=== PATIENT | male | born 1990 | race Caucasian/White ===

== ENCOUNTER → 2020-04-16 11:43 | Outpatient (CLI) | payer BC, SELFPAY ==
[2020-04-16 12:20] LABS: Basophils # 0.1 K/mm3 (0-0.2); Basophils % 1.1 % (0.1-2.0); Eosinophils # 0.1 K/mm3 (0.0-0.4); Hematocrit 47.2 % (42.0-52.0); Hemoglobin 16.4 g/dL (14.1-18.0); Lymphocytes # 1.4 K/mm3 (0.7-4.5); Lymphocytes % 23.6 % (10-50); Mean Corpuscular HGB Conc 34.7 g/dL (31.8-35.4); Mean Corpuscular Hemoglobin 29.9 pg (27.0-31.2); Mean Corpuscular Volume 86.1 fl (80-94); Mean Platelet Volume 7.4 fl (7.4-10.4); Monocytes # 0.5 K/mm3 (0.1-1.0); Neutrophils # 3.8 K/mm3 (1.8-7.8); Neutrophils % 64.2 % (37.0-80.0); Platelet Count 229 K/mm3 (142-424); Red Blood Count 5.48 M/mm3 (4.60-6.20); Red Cell Distribution Width 14.4 % (11.5-17.5)
[2020-04-16 13:23] LABS: Chloride 103 mmol/L (98-107); Potassium 4.7 mmoL/L (3.5-5.1); Sodium 141 mmol/L (136-145)
[2020-04-16 13:25] LABS: Alanine Aminotransferase 43 U/L (12-78); Alkaline Phosphatase 78 U/L (38-126); Aspartate Amino Transferase 40 U/L (17-59); Bilirubin,Total 0.8 mg/dl (0.2-1.3); Blood Urea Nitrogen 12 mg/dl (9-20); Estimated Glomerular Filt Rate 100 ml/min (>60); GFR (African American) 121 ML/MIN (>60)
[2020-04-16 13:26] LABS: Albumin Level 4.9 g/dl (3.5-5.0); Albumin/Globulin Ratio 1.6 (1.1-1.8); Anion Gap 10.7 mEq/L (5-15); Calcium 10.1 mg/dl (8.4-10.2); Carbon Dioxide 32 mmol/L (22.0-30.0); Chol/HDL Ratio 7.5 (1-3.5); Cholesterol 231 mg/dl (140-200); Glucose 104 mg/dl (74-100); HDL Cholesterol 31 mg/dl (40-60); Total Protein,Serum 7.9 g/dl (6.3-8.2); Triglycerides 373 mg/dl (30-150); VLDL Cholesterol 75 mg/dL (0-40)
[2020-04-16 13:37] LABS: Direct LDL Cholesterol 114.05 mg/dL (100-129)
[2020-04-16 13:41] LABS: 25-OH Vitamin D, Total 16.9 ng/mL (30-100)
[2020-04-16 13:43] LABS: T4 (Thyroxine) 8.3 ug/dl (5.53-11.0)
[2020-04-16 13:56] LABS: Thyroid Stimulating Hormone 2.44 uIU/mL (0.465-4.68)
[2020-04-16 14:45] LABS: Hemoglobin A1C 5.1 % (4.0-6.0)
== END ==
PROVIDERS: Visit Provider Nurse Practitioner Family
DX: I10 Essential (primary) hypertension (principal); R53.1 Weakness; E66.9 Obesity, unspecified; Z68.35 Body mass index [BMI] 35.0-35.9, adult; R73.09 Other abnormal glucose; E55.9 Vitamin D deficiency, unspecified; Z87.891 Personal history of nicotine dependence
CPT/HCPCS: 36415; 80053; 80061; 82306; 83036; 84436; 84443; 85025

== ENCOUNTER → 2020-09-17 20:08 | Outpatient (CLI) | payer BC, SELFPAY ==
[2020-09-17 20:30] LABS: Basophils # 0.1 K/mm3 (0-0.2); Basophils % 1.1 % (0.1-2.0); Eosinophils # 0.9 K/mm3 (0.0-0.4); Eosinophils % 11.6 % (0.1-12.0); Hematocrit 40.1 % (42.0-52.0); Hemoglobin 14.6 g/dL (14.1-18.0); Lymphocytes # 1.6 K/mm3 (0.7-4.5); Lymphocytes % 21.6 % (10-50); Mean Corpuscular HGB Conc 36.4 g/dL (31.8-35.4); Mean Corpuscular Hemoglobin 30.3 pg (27.0-31.2); Mean Corpuscular Volume 83.3 fl (80-94); Mean Platelet Volume 8.2 fl (7.4-10.4); Monocytes # 0.6 K/mm3 (0.1-1.0); Monocytes % 8.3 % (1.7-9.3); Neutrophils # 4.3 K/mm3 (1.8-7.8); Neutrophils % 57.5 % (37.0-80.0); Platelet Count 235 K/mm3 (142-424); Red Blood Count 4.81 M/mm3 (4.60-6.20); Red Cell Distribution Width 14.2 % (11.5-17.5); White Blood Count 7.5 K/mm3 (4.8-10.8)
[2020-09-17 20:37] LABS: Alanine Aminotransferase 44 U/L (12-78); Albumin Level 4.3 g/dl (3.5-5.0); Albumin/Globulin Ratio 1.7 (1.1-1.8); Alkaline Phosphatase 83 U/L (38-126); Anion Gap 12.7 mEq/L (5-15); Aspartate Amino Transferase 48 U/L (17-59); Bilirubin,Total 0.6 mg/dl (0.2-1.3); Blood Urea Nitrogen 10 mg/dl (9-20); Calcium 8.9 mg/dl (8.4-10.2); Carbon Dioxide 28 mmol/L (22.0-30.0); Chloride 104 mmol/L (98-107); Chol/HDL Ratio 7.6 (1-3.5); Cholesterol 206 mg/dl (140-200); Estimated Glomerular Filt Rate 100 ml/min (>60); GFR (African American) 121 ML/MIN (>60); Globulin 2.6 g/dL (1.3-3.2); Glucose 91 mg/dl (74-100); HDL Cholesterol 27 mg/dl (40-60); Potassium 3.7 mmoL/L (3.5-5.1); Sodium 141 mmol/L (136-145); Total Protein,Serum 6.9 g/dl (6.3-8.2); Triglycerides 382 mg/dl (30-150); VLDL Cholesterol 76 mg/dL (0-40)
[2020-09-17 20:48] LABS: Direct LDL Cholesterol 110.52 mg/dL (100-129)
[2020-09-17 20:53] LABS: 25-OH Vitamin D, Total 25.8 ng/mL (30-100)
[2020-09-17 20:55] LABS: Free T4 (Free Thyroxine) 1.02 ng/dl (0.78-2.19)
[2020-09-17 21:08] LABS: Thyroid Stimulating Hormone 2.08 uIU/mL (0.465-4.68)
== END ==
PROVIDERS: Visit Provider Nurse Practitioner Family
DX: I10 Essential (primary) hypertension (principal); E03.9 Hypothyroidism, unspecified; K59.00 Constipation, unspecified; R53.83 Other fatigue; E55.9 Vitamin D deficiency, unspecified; Z79.899 Other long term (current) drug therapy
CPT/HCPCS: 80053; 80061; 82306; 84439; 84443; 85025

== ENCOUNTER → 2021-03-11 09:58 | Outpatient (CLI) | payer BC, SELFPAY ==
--- NOTE | 2021-03-11 | CA_ITS ---
APPROVED REPORT Exam: Exercise Treadmill Technologist: Carlie Love Ht: 5 ft 5 in Wt: 228 lbs BSA: 2.09 m2 HR: 94 bpm BP: 138/80 mmHg Indications: Chest pain, Shortness of Breath Medical History Medications: Lisinopril,,,,, Vitamin D2,,,,, Stress Test Details Test: Michael HR Resting HR: 90 bpm Max Heart Rate (APMHR): 191 bpm Max HR Achieved: 175 bpm Target HR (85% APMHR): 162 bpm % of APMHR: 92 Recovery HR: 112 bpm BP Resting BP: 138.0/80.0 mmHg Max BP: 208.0/70.0 mmHg Recovery BP: 149.0/86.0 mmHg ECG Resting ECG: Normal sinus rhythm, ST-T abnormalities in leads III and aVF. Clinical Exercise duration: 10:37 min Highest Stage Achieved: Exercise capacity: 12.8 METs Stress ECG Conclusion Patient exercised 10:37 on Michael Protocol. Test stopped due to shortness of air, leg fatigue. Symptoms: No chest pain. Arrhythmias/Ectopy: None ST-T Changes: Mild exaggeration of baseline abnormalities in leads III and aVF, otherwise normal ST response to exercise. Conclusion: Normal GXT. GXT only (no imaging). Test Summary REST . . . . . . . Sitting REST . . . . . . . Standing REST 03:59 0.0 0.0 90 . 138/ 80 . . Stage 1 01:00 10.0 1.7 123 . . . . Stage 1 02:00 10.0 1.7 126 . . . . Stage 1 03:00 10.0 1.7 125 . . . . Stage 2 01:00 12.0 2.5 136 . 158/ 86 . . Stage 2 02:00 12.0 2.5 136 . 158/ 86 . . Stage 2 03:00 12.0 2.5 142 . 184/ 80 . . Stage 3 01:00 14.0 3.4 152 . . . . Stage 3 02:00 14.0 3.4 156 . 200/ 82 . . Stage 3 03:00 14.0 3.4 159 . 200/ 82 . . Stage 4 01:00 16.0 4.2 170 . . . . Stage 4 01:37 16.0 4.2 175 . . . Stop exercise at 10:37 RECOVERY 01:00 0.0 0.0 148 . 208/ 70 . . RECOVERY 02:00 0.0 0.0 124 . 208/ 70 . . RECOVERY 03:00 0.0 0.0 123 . 157/ 85 . . RECOVERY 04:00 0.0 0.0 115 . 157/ 85 . . RECOVERY 05:00 0.0 0.0 111 . 159/ 94 . . RECOVERY 06:00 0.0 0.0 107 . 149/ 86 . . RECOVERY 06:20 0.0 0.0 106 . 149/ 86 . . Electronically signed by : Esau Monroe MD 03/11/2021 21:12:52
--- NOTE | 2021-03-11 10:01 | CA_ITS ---
APPROVED REPORT EXAM: Comprehensive 2D, Doppler, and color-flow Echocardiogram Head Grease Maker: Gely Krishnan, RCS, RVS Ht: 5 ft 5 in Wt: 228lbs BSA: 2.09 BP: 140/88 mmHg Indications: CP, SOA, HTN, HLD, exsmoker, Obesity 2D Dimensions IVSd 0.99 cm LA Volume 25.10 mL PWd 0.90 cm LA Volume Index 12.00 mL/m2 (M/F) 16-34 LVDd 4.67 cm Aortic Root 2.78 cm Left Atrium 3.47 cm LVOT 2.19 cm (M/F) 1.5-2.5 M-Mode Dimensions RVDd 2.25 cm (0.9-2.6) LA Diam 2.99 cm (1.9-4.0) LVDd 5.00 cm (3.5-5.7) Ao Diam 3.13 cm (2.0-3.7) LVDs 3.15 cm (3.5-5.7) IVSd 1.04 cm (0.6-1.1) PWd 1.07 cm (0.6-1.1) EF (Teich) 66.70% EPSs 0.50 cm FS 37.00% EDV (Teich) 118.20 mL TAPSE 2.38 (<1.7) ESV (Teich) 39.40 mL LV Diastology E Decel Time 173.00 (160-240 msec) E/A Ratio 1.72 MED E' 10.80 (< 7 cm/sec) MED A' 9.50 cm/s E'/MED E' Ratio 7.53 (>14) LAT E' 14.50 (<10 cm/sec) LAT A' 8.40 cm/s E/LAT E' Ratio 5.61 (>14) Aortic Valve LVOT Max 100.00 (70-110 cm/s) LVOT VTI 16.42 cm AoV Peak Khari. 102.00 (50-130 cm/s) AO Peak GR. 4.10 mmHg AO Mean GR. 2.20 (<5 mmHg) AO VTI 19.14 (18-25 cm) JM (VTI) 3.23 (2.5-4.5 cm2) Mitral Valve MV A Velocity 47.00 (40-130 cm/s) E/A Ratio 1.72 MV Decel. Time 173.00 (160-240 ms) Pulmonary Valve PV Peak Velocity 75.00 (50-150 cm/s) Tricuspid Valve TR P. Velocity 148.00 cm/s RAP Estimate 10.00 mmHg RVSP 18.80 mmHg Left Ventricle Left atrium is normal size, left ventricle is normal size, there is no concentric left ventricular hypertrophy, visually estimated ejection fraction 55% with no regional wall motion abnormality, diastolic parameters are within normal range. Right Ventricle Right atrium and right ventricle are normal size and contractility. Aortic Valve Aortic valve is grossly normal, there is no aortic stenosis or aortic insufficiency. Mitral Valve Mitral valve is grossly normal, there is trace mitral regurgitation. Tricuspid Valve Tricuspid grossly normal, there is trace tricuspid regurgitation, tricuspid regurgitation jet velocity is inadequate for calculation of the right ventricular systolic pressure. Pulmonic Valve Pulmonic valve is poorly visualized. Great Vessels Aortic root is normal size. Inferior vena cava normal size with normal inspiratory collapse. Pericardium No significant pericardial effusion noted. Conclusion 1. Normal left ventricular size, preserved left ventricular systolic function, visually estimated ejection fraction 55% with no regional wall motion abnormality, diastolic parameters are within normal range. 2. Trace mitral and tricuspid regurgitation. 3. No significant pericardial effusion noted. 4. Inferior vena cava normal size with normal inspiratory collapse. Electronically signed by : Esau Monroe MD 03/11/2021 20:52:15
== END ==
PROVIDERS: PCP Nurse Practitioner Family; Visit Provider Urology
DX: R07.9 Chest pain, unspecified (principal); I10 Essential (primary) hypertension; E78.5 Hyperlipidemia, unspecified; R94.31 Abnormal electrocardiogram [ECG] [EKG]; Z87.891 Personal history of nicotine dependence
CPT/HCPCS: 93017; 93306

== ENCOUNTER 2021-04-23 13:56 | Emergency (ER) | payer BC, SELFPAY ==
--- NOTE | 2021-04-23 13:54 | ECG_ITS ---
APPROVED REPORT Exam: Resting ECG HR:103 bpm ECG Measurements Heart Rate 103 AXES SD 125 P 53 QRSd 106 QRS 42 QT 336 T 30 QTc 396 Conclusion SINUS TACHYCARDIA ABNORMAL RHYTHM ECG UNCONFIRMED REPORT Electronically signed by : Wilbert Villalobos MD 04/27/2021 17:32:26
[2021-04-23 13:56] VITALS: BP 147/69; PULSE 96; RESP 20; TEMP 36.7; O2SAT 100; BMI 38.2
--- NOTE | 2021-04-23 13:58 | XR_ITS ---
FINAL REPORT CLINICAL HISTORY: chest pain FINDINGS: SINGLE VIEW CHEST. The heart is normal in size. The mediastinum is unremarkable. The lungs are clear. There is no pneumothorax. IMPRESSION: No acute process. Reviewed, Interpreted and Dictated by Mike Felton MD Transcribed by Jaimee Gonzales Authenticated by Mike Felton MD on 04/23/2021 02:22:19 PM [facility]
--- NOTE | 2021-04-23 14:02 | HMH.EDGENADL ---
ED Disposition Clinical Impression: Chest pain Qualifiers: Chest pain type: unspecified Qualified Code(s): R07.9 - Chest pain, unspecified Disposition: Home, Self-Care Condition on Discharge: Good Instructions: DI for Chest Pain Additional Instructions: You have been evaluated for chest pain. Laboratory results, EKG, chest x-ray today are reassuring. They do not show evidence of heart attack, pneumonia. Please follow-up with your primary care doctor in 1 to 2 days for symptom recheck. Follow-up with your loan assistant, Dr. Wu as needed. Take anti-inflammatories like Tylenol or ibuprofen. Return to the emergency department at once for any new or worsening symptoms, chest pain, shortness of breath, other concerns Referrals: Vicki Stratton APRN [Primary Care Provider] - Time of Disposition: 16:46 - Critical Care Critical Care Time: No Attestation: On 04/23/21, the high probability of a clinically significant, sudden or life threatening deterioration of the following system(s) required my full and direct attention, intervention and personal management. The time I documented below is in addition to time spent performing reported procedures but includes the following listed in this critical care notation. Medical Decision Making - Medical Records Medical records reviewed: Yes: I reviewed the patient's medical records. - Vineet Inquiry Pt receiving controlled substance: No Vital Signs: 04/23/21 13:56 Temperature 98.0 F Temperature Source Oral Pulse Rate [Left Radial] 96 H Respiratory Rate 20 Blood Pressure [Right Arm] 147/69 H Blood Pressure Mean [Right Arm] 95 Blood Pressure Source [Right Arm] Automatic Cuff Blood Pressure Position [Right Arm] Sitting 02 Sat by Pulse Oximetry 100 Oxygen Delivery Method Room Air - Lab Data Lab Results 04/23/21 13:59: WBC 5.8, RBC 5.22, Hgb 16.0, Hct 46.3, MCV 88.7, MCH 30.6, MCHC 34.5, RDW 14.4, Plt Count 243, MPV 7.4, Neut % (Auto) 56.1, Lymph % (Auto) 28.9, [place] % (Auto) 9.1, Eos % (Auto) 3.5, Baso % (Auto) 2.4 H, Neut # (Auto) 3.3, Lymph # (Auto) 1.7, [place] # (Auto) 0.5, Eos # (Auto) 0.2, Baso # (Auto) 0.1 04/23/21 13:59: D-Dimer 0.37 04/23/21 13:59: Sodium 142, Potassium 3.3 L, Chloride 104, Carbon Dioxide 30, Anion Gap 11.3, BUN 10, Creatinine 0.80, Estimated Creat Clear 199, Estimated GFR 114, Est GFR ( Amer) 137, Glucose 121 H, Calcium 9.2, Total Bilirubin 0.5, AST 69 H, ALT 94 H, Alkaline Phosphatase 73, Troponin I < 0.01, Total Protein 7.7, Albumin 4.8, Globulin 2.9, Albumin/Globulin Ratio 1.7 04/23/21 16:00: Troponin I < 0.01 Result diagrams: 04/23/21 13:59 04/23/21 13:59 Orders (Tests/Meds): ED MEDICATIONS Discontinued Medications Generic Name Dose Route Start Last Admin Trade Name Freq PRN Reason Stop Dose Admin Aspirin 324 mg 04/23/21 13:58 04/23/21 14:02 Aspirin 81mg Chewable Tablet PO 04/23/21 13:59 324 mg ONCE ONE Administration ORDERS Category Date Time Status Troponin I Q3H Lab 04/23/21 20:00 Ordered ECG Request by /Nse Stat Y 04/23/21 13:58 Ordered - LISANDRA Score for Non-Stemi Age of Patient: 30-39 years old Heart Rate: 90-109 bpm Systolic Blood Pressure: 140-159 mmHg Serum Creatinine: 0.80-1.19 mg/dl CHF Killip Class: I-No CHF Other Risk Factors: None Non-Stemi Risk Score: 54 Medical Decision Narrative: In summary this is a 31-year-old male with history of hypertension presenting to the emergency department with chest pain. Patient clinically stable on arrival. Tachycardic. Other vital signs within normal limits. Concern for ACS, chest wall pain, viral syndrome, pulmonary embolism. Will obtain CBC, CMP, chest x-ray, EKG, troponin profile, D-dimer. Patient given 325 chewable aspirin Initial laboratory results are reassuring. Slight elevation in AST and ALT, nonspecific EKG shows sinus rhythm, tachycardia without evidence of ischemia or arrhythmia. X-ray shows no focal opacity or multifoca
[2021-04-23 14:16] LABS: Basophils # 0.1 K/mm3 (0-0.2); Basophils % 2.4 % (0.1-2.0); Eosinophils # 0.2 K/mm3 (0.0-0.4); Eosinophils % 3.5 % (0.1-12.0); Hematocrit 46.3 % (42.0-52.0); Lymphocytes # 1.7 K/mm3 (0.7-4.5); Lymphocytes % 28.9 % (10-50); Mean Corpuscular HGB Conc 34.5 g/dL (31.8-35.4); Mean Corpuscular Hemoglobin 30.6 pg (27.0-31.2); Mean Corpuscular Volume 88.7 fl (80-94); Mean Platelet Volume 7.4 fl (7.4-10.4); Monocytes # 0.5 K/mm3 (0.1-1.0); Monocytes % 9.1 % (1.7-9.3); Neutrophils # 3.3 K/mm3 (1.8-7.8); Neutrophils % 56.1 % (37.0-80.0); Platelet Count 243 K/mm3 (142-424); Red Blood Count 5.22 M/mm3 (4.60-6.20); Red Cell Distribution Width 14.4 % (11.5-17.5); White Blood Count 5.8 K/mm3 (4.8-10.8)
[2021-04-23 14:22] LABS: Alanine Aminotransferase 94 U/L (12-78); Albumin Level 4.8 g/dl (3.5-5.0); Albumin/Globulin Ratio 1.7 (1.1-1.8); Alkaline Phosphatase 73 U/L (38-126); Anion Gap 11.3 mEq/L (5-15); Aspartate Amino Transferase 69 U/L (17-59); Bilirubin,Total 0.5 mg/dl (0.2-1.3); Blood Urea Nitrogen 10 mg/dl (9-20); Calcium 9.2 mg/dl (8.4-10.2); Carbon Dioxide 30 mmol/L (22.0-30.0); Chloride 104 mmol/L (98-107); Creatinine Clearance Estimated 199 mL/min (50-200); Estimated Glomerular Filt Rate 114 ml/min (>60); GFR (African American) 137 ML/MIN (>60); Globulin 2.9 g/dL (1.3-3.2); Glucose 121 mg/dl (74-100); Potassium 3.3 mmoL/L (3.5-5.1); Sodium 142 mmol/L (136-145); Total Protein,Serum 7.7 g/dl (6.3-8.2)
[2021-04-23 14:27] LABS: D-Dimer 0.37 ug/mL (0.0-0.5)
[2021-04-23 14:47] LABS: Troponin I < 0.01 ng/ml (0.00-0.034)
[2021-04-23 16:42] LABS: Troponin I < 0.01 ng/ml (0.00-0.034)
[2021-04-23 16:56] VITALS: BP 129/69; PULSE 94; RESP 16; TEMP 36.7; O2SAT 96
== END 2021-04-23 16:59 | disposition home or self-care (01) ==
PROVIDERS: Emergency Provider Emergency Medicine; PCP Nurse Practitioner Family
DX: R07.9 Chest pain, unspecified (principal)
CPT/HCPCS: 71045; 80053; 84484; 85025; 85378; 93005; 99283

== ENCOUNTER → 2021-06-17 17:00 | Outpatient (CLI) | payer BC, SELFPAY ==
[2021-06-17 18:34] LABS: Basophils # 0.1 K/mm3 (0-0.2); Basophils % 1.7 % (0.1-2.0); Eosinophils # 0.2 K/mm3 (0.0-0.4); Eosinophils % 4.3 % (0.1-12.0); Hematocrit 45.2 % (42.0-52.0); Lymphocytes # 1.2 K/mm3 (0.7-4.5); Mean Corpuscular HGB Conc 33.2 g/dL (31.8-35.4); Mean Corpuscular Hemoglobin 29.9 pg (27.0-31.2); Mean Corpuscular Volume 90.2 fl (80-94); Mean Platelet Volume 8.8 fl (7.4-10.4); Monocytes # 0.5 K/mm3 (0.1-1.0); Monocytes % 10.8 % (1.7-9.3); Neutrophils # 2.7 K/mm3 (1.8-7.8); Neutrophils % 58.1 % (37.0-80.0); Platelet Count 225 K/mm3 (142-424); Red Blood Count 5.01 M/mm3 (4.60-6.20); Red Cell Distribution Width 14.3 % (11.5-17.5); White Blood Count 4.6 K/mm3 (4.8-10.8)
[2021-06-17 19:10] LABS: Alanine Aminotransferase 78 U/L (12-78); Albumin Level 4.4 g/dl (3.5-5.0); Albumin/Globulin Ratio 1.7 (1.1-1.8); Alkaline Phosphatase 80 U/L (38-126); Anion Gap 13.8 mEq/L (5-15); Aspartate Amino Transferase 58 U/L (17-59); Bilirubin,Total 0.6 mg/dl (0.2-1.3); Blood Urea Nitrogen 10 mg/dl (9-20); Calcium 8.9 mg/dl (8.4-10.2); Carbon Dioxide 27 mmol/L (22.0-30.0); Chloride 106 mmol/L (98-107); Cholesterol 208 mg/dl (140-200); Estimated Glomerular Filt Rate 114 ml/min (>60); GFR (African American) 137 ML/MIN (>60); Globulin 2.6 g/dL (1.3-3.2); Glucose 97 mg/dl (74-100); HDL Cholesterol 26 mg/dl (40-60); Potassium 3.8 mmoL/L (3.5-5.1); Sodium 143 mmol/L (136-145)
[2021-06-17 19:11] LABS: Hemoglobin A1C 5.3 % (4.0-6.0)
[2021-06-17 19:17] LABS: Triglycerides 401 mg/dl (30-150)
[2021-06-17 19:21] LABS: Direct LDL Cholesterol 91.96 mg/dL (100-129)
[2021-06-17 19:25] LABS: T4 (Thyroxine) 7.1 ug/dl (5.53-11.0)
[2021-06-17 19:39] LABS: Thyroid Stimulating Hormone 3.31 uIU/mL (0.465-4.68)
== END ==
PROVIDERS: Visit Provider Nurse Practitioner Family
DX: R93.2 Abnormal findings on diagnostic imaging of liver and biliary tract (principal); F41.9 Anxiety disorder, unspecified; Z79.899 Other long term (current) drug therapy
CPT/HCPCS: 80053; 80061; 82043; 83036; 84436; 84443; 85025

== ENCOUNTER 2021-11-28 09:58 | Emergency (ER) | payer BC, SELFPAY ==
[2021-11-28 10:23] VITALS: BP 131/89; PULSE 101; RESP 19; TEMP 37.7; O2SAT 98; BMI 34.0
--- NOTE | 2021-11-28 10:23 | EXP.UTC ---
Discharge Plan Disposition Patient Disposition: Home, Self-Care Condition: Good Prescriptions Prescriptions: No Action lisinopril 20 mg tablet 20 mg PO DAILY Qty: 90 3RF ergocalciferol (vitamin D2) 1,250 mcg (50,000 unit) capsule 50,000 unit PO QWEEK Qty: 10 0RF Referrals Follow up/Referrals: Provider,Referral, MD [Primary Care Provider] - See instructions Clinical Impressions Clinical Impression: Contact with and (suspected) exposure to covid-19 Stand Alone Forms Stand Alone Forms: Work/School Release Instructions Patient Instructions: DI for Fever (Symptom) -- Adult, DI for COVID-19 (Suspected or Confirmed ), Preventing the Spread of Coronavirus Discharge Instructions Discharge ED Provider: Julia Hale [facility] [place] General Stated complaint: fever, congestion, LARA Time Seen by Provider: 11/28/21 10:23 History of Present Illness Provider Complaint: Pt relates that a co-worker beside him has had Covid and he did a home test last night and tested positive for Covid. Pt states that he has had fever, cough, body aches since yesterday. Related Data Previous Rx's Medication Instructions Recorded ergocalciferol (vitamin D2) 1,250 50,000 unit PO QWEEK #10 caps 09/23/20 mcg (50,000 unit) capsule lisinopril 20 mg tablet 20 mg PO DAILY #90 tabs 02/10/21 Allergies Allergy/AdvReac Type Severity Reaction Status Date / Time No Known Allergies Allergy Verified 06/17/21 13:02 [facility] Medical History (Updated 11/28/21 @ 10:35 by Julia Hale APRN) Hypertension Social History Smoking Status: Never smoker alcohol intake: never current occupational status: other Travel in the last 8 weeks: None ROS Obtained: Yes All systems reviewed & no additional complaints except as documented Constitutional Constitutional: Reports as per HPI, Reports body ache, Reports fever(s) and Reports malaise ENT Ears, Nose, Mouth, and Throat: Reports nasal congestion and Reports nasal discharge Cardiovascular Cardiovascular: Reports system reviewed and no additional complaints, except as documented and Denies dyspnea on exertion Respiratory Respiratory: Reports system reviewed and no additional complaints, except as documented, Denies shortness of breath, Reports non-productive cough and Denies dyspnea on exertion Physical Exam General General appearance: alert and in no apparent distress ENT ENT exam: Present mucous membranes moist Expanded ENT Exam External ear exam: Present normal external inspection Nasal speculum exam: Bilateral: other (clear sinus drainage) Mouth exam: Present normal external inspection Throat exam: Present normal inspection Respiratory Respiratory exam: Present normal lung sounds bilaterally; Absent wheezes or accessory muscle use Cardiovascular Cardiovascular exam: Present regular rate and normal rhythm Neurological Exam Neurological exam: Present alert and oriented X3 Lymphatic Lymphatic Findings: no adenopathy Medical Decision Making Vineet Inquiry Pt receiving controlled substance: No Vineet was queried for this patient: No Orders (Tests/Meds): ORDERS Category Date Time Status Covid-19 Nasal PCR ([facility]) Routine Lab 11/28/21 10:06 Ordered
[2021-11-28 10:38] VITALS: BP 131/89; PULSE 101; RESP 19; TEMP 37.7; O2SAT 98
== END 2021-11-28 10:39 | disposition home or self-care (01) ==
PROVIDERS: Emergency Provider Nurse Practitioner Family
DX: U07.1 COVID-19 (principal); R50.9 Fever, unspecified; R51.9 Headache, unspecified; R09.81 Nasal congestion
CPT/HCPCS: 99212; C9803; G0463; U0003; U0005

== ENCOUNTER → 2022-07-07 16:34 | Outpatient (CLI) | payer BC, SELFPAY ==
--- NOTE | 2022-07-07 16:44 | XR_ITS ---
FINAL REPORT CLINICAL HISTORY: Shortness of breath, heart palpitations COMPARISON: 04/23/2021 FINDINGS: Two views of the chest were obtained. The heart size and pulmonary vascularity are within normal limits. The mediastinum is normal. No acute pulmonary abnormality is identified. There is no pneumothorax. The bony thorax is intact. IMPRESSION: No active cardiopulmonary disease. Reviewed, Interpreted and Dictated by Memo Callaway III, MD Transcribed by Pamela Fernandez Authenticated and [facility] [place] [place]
== END ==
PROVIDERS: PCP Physician Assistant; Visit Provider Physician Assistant
DX: R06.09 Other forms of dyspnea (principal); R00.2 Palpitations
CPT/HCPCS: 71046

== ENCOUNTER 2022-07-09 12:27 | Emergency (ER) | payer BC, SELFPAY ==
[2022-07-09] VITALS (7 sets, daily range): BP systolic 107–155; BP diastolic 63–96; PULSE 66–95; RESP 16–17; TEMP 36.7–36.8; O2SAT 94–99; BMI 35.9
--- NOTE | 2022-07-09 12:26 | ECG_ITS ---
APPROVED REPORT Exam: Resting ECG HR:101 bpm ECG Measurements Heart Rate 101 AXES ID 142 P 70 QRSd 100 QRS 62 QT 337 T 45 QTc 395 Conclusion SINUS TACHYCARDIA ABNORMAL RHYTHM ECG UNCONFIRMED REPORT Electronically signed by : Wilbert Villalobos MD 07/10/2022 08:34:32
--- NOTE | 2022-07-09 12:32 | PC.NURSE ---
DR WHITE AT BEDSIDE
--- NOTE | 2022-07-09 12:35 | HMH.EDGENADL ---
Discharge Plan Disposition Patient Disposition: Home, Self-Care Condition: Good Chief Complaint: Chest Pain Prescriptions Prescriptions: No Action lisinopril 20 mg tablet 20 mg PO DAILY Qty: 90 3RF ergocalciferol (vitamin D2) 1,250 mcg (50,000 unit) capsule 50,000 unit PO QWEEK Qty: 10 0RF Activity Restrictions/Add. Instructions Additional Instructions/Restrictions: At this time was felt you are safe to be discharged from the emergency department. If new or worsening symptoms please not hesitate to return for continued evaluation. Please follow-up with cardiology as discussed. Clinical Impressions Clinical Impression: Chest pain Discharge ED Provider: Tommy Barnes General Adult HPI General Chief complaint: Chest Pain Stated complaint: chest pain Time Seen by Provider: 07/09/22 12:30 Mode of Arrival: Ambulatory Source of Information: Patient Limitations: No Limitations Description of Symptoms (Recalled from ER Triage Doc. by RN): c/o center left chest pain with left arm and neck pain, nausea, LARA that started about one week ago. States he was suppose to start on anxiety meds and was picking them up today. States the pain comes when he is stressed. History of Present Illness HPI narrative: Patient is a 32-year-old male with past medical history of anxiety who presents emergency department for evaluation of chest pain. It has been intermittent, over the last week, substernal, intermittently radiating into his left shoulder, associated with emotional stress. No exertional components. 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 Denies cough, other acute complaints at this time. Related Data Previous Rx's Medication Instructions Recorded ergocalciferol (vitamin D2) 1,250 50,000 unit PO QWEEK #10 caps 09/23/20 mcg (50,000 unit) capsule lisinopril 20 mg tablet 20 mg PO DAILY #90 tabs 02/10/21 Allergies Allergy/AdvReac Type Severity Reaction Status Date / Time No Known Allergies Allergy Verified 06/17/21 13:02 [facility] Disclaimer: The information contained in this section may have been updated after the patient was seen, as this information can be updated by other users. Medical History (Updated 07/09/22 @ 16:27 by Tommy Barnes MD) Hypertension Social History Smoking Status: Never smoker alcohol intake: never current occupational status: other Travel in the last 8 weeks: None ROS Obtained: Yes Systems reviewed as appropriate & no additional complaints except as documented Physical Exam General General appearance: alert and in no apparent distress Head Head exam: atraumatic and normocephalic Eye Eye exam: Present PERRL and EOMI ENT ENT exam: Present mucous membranes moist Neck Neck exam: Present normal inspection Chest Chest inspection: Present normal inspection and symmetric chest wall rise Respiratory Respiratory exam: Present normal lung sounds bilaterally; Absent respiratory distress Cardiovascular Cardiovascular exam: Present regular rate, normal rhythm and other (2+ right radial pulse) Abdominal Exam Abdominal exam: Present soft; Absent tenderness Extremities Exam Extremities exam: Present normal inspection Neurological Exam Neurological exam: Present alert Psychiatric Psychiatric exam: Present normal affect Skin Skin exam: Present warm and dry Medical Decision Making Vineet Inquiry Pt receiving controlled substance: No Vital Signs: 07/09/22 12:29 07/09/22 12:30 07/09/22 13:00 Temperature 98.1 F Temperature Source Oral Pulse Rate 95 H 83 Pulse Rate [Left Radial] 89 Respiratory Rate 16 Blood Pressure 135/96 H 129/78 Blood Pressure [Right Arm] 155/96 H Blood Pressure Mean 114 95 Blood Pressure Mean [Right Arm] 115 Blood Pressure Source [Right Arm] Automatic Cuff Blood Pressure Position [Right Arm] Sitting 02 Sat by Pulse Oximetry 99 99 95 Oxygen Delivery Method Room Air Room Air Room Air 07/09/22 13:3
--- NOTE | 2022-07-09 12:40 | PC.NURSE ---
ROUNDED ON PT AT THIS TIME, UPDATED ON POC. TOLERATED PO INTAKE, NO NEEDS AT THIS TIME
[2022-07-09 12:53] LABS: Basophils # 0.1 K/mm3 (0-0.2); Chloride 101 mmol/L (98-107); Eosinophils # 0.1 K/mm3 (0.0-0.4); Eosinophils % 2.5 % (0.1-12.0); Hematocrit 47.7 % (42.0-52.0); Hemoglobin 16.2 g/dL (14.1-18.0); Lymphocytes # 1.3 K/mm3 (0.7-4.5); Lymphocytes % 24.5 % (10-50); Mean Corpuscular HGB Conc 34.1 g/dL (31.8-35.4); Mean Corpuscular Hemoglobin 29.2 pg (27.0-31.2); Mean Corpuscular Volume 85.6 fl (80-94); Mean Platelet Volume 7.5 fl (7.4-10.4); Monocytes # 0.5 K/mm3 (0.1-1.0); Monocytes % 8.6 % (1.7-9.3); Neutrophils # 3.4 K/mm3 (1.8-7.8); Neutrophils % 63.6 % (37.0-80.0); Platelet Count 214 K/mm3 (142-424); Potassium 3.7 mmoL/L (3.5-5.1); Red Blood Count 5.57 M/mm3 (4.60-6.20); Red Cell Distribution Width 14.1 % (11.5-17.5); Sodium 142 mmol/L (136-145); White Blood Count 5.3 K/mm3 (4.8-10.8)
[2022-07-09 12:56] LABS: Anion Gap 13.7 mEq/L (5-15); Blood Urea Nitrogen 9 mg/dl (9-20); Carbon Dioxide 31 mmol/L (22.0-30.0); Creatinine Clearance Estimated 165 mL/min (50-200); Estimated Glomerular Filt Rate 98 ml/min (>60); GFR (African American) 119 ML/MIN (>60); Glucose 119 mg/dl (74-100)
[2022-07-09 13:09] LABS: Troponin I < 0.01 ng/ml (0.00-0.034)
--- NOTE | 2022-07-09 13:12 | PC.NURSE ---
PT TO XR
--- NOTE | 2022-07-09 13:54 | ECG_ITS ---
APPROVED REPORT Exam: Resting ECG HR:77 bpm ECG Measurements Heart Rate 77 AXES ID 148 P 63 QRSd 96 QRS 56 QT 357 T 42 QTc 389 Conclusion SINUS RHYTHM NORMAL ECG UNCONFIRMED REPORT Electronically signed by : Wilbert Villalobos MD 07/10/2022 08:34:29
--- NOTE | 2022-07-09 14:00 | PC.NURSE ---
PT UPDATED AT THIS TIME, NO NEEDS VOICED. CALL LIGHT WITHIN REACH
--- NOTE | 2022-07-09 14:58 | PC.NURSE ---
nikky storey and terrell shi rounded on pt
--- NOTE | 2022-07-09 15:42 | PC.NURSE ---
PT UPDATED AT THIS TIME, REPEAT TROP DRAWN BY LAB. PT WITHOUT NEEDS AT THIS TIME
[2022-07-09 16:24] LABS: Troponin I < 0.01 ng/ml (0.00-0.034)
--- NOTE | 2022-07-09 16:35 | PC.NURSE ---
DR WHITE AT BEDSIDE TO UPDATE PT ON DISCHARGE
== END 2022-07-09 16:40 | disposition home or self-care (01) ==
PROVIDERS: Emergency Provider Emergency Medicine
DX: R07.9 Chest pain, unspecified (principal); M25.512 Pain in left shoulder
CPT/HCPCS: 80048; 84484; 85025; 93005; 99285

== ENCOUNTER 2022-08-12 08:50 | Emergency (ER) | payer BC, SELFPAY ==
[2022-08-12] VITALS (7 sets, daily range): BP systolic 128–154; BP diastolic 77–99; PULSE 71–81; RESP 18; TEMP 36.7–36.8; O2SAT 96–99; BMI 34.9
--- NOTE | 2022-08-12 09:22 | CT_ITS ---
FINAL REPORT CLINICAL HISTORY: dizziness FINDINGS: Axial images of the head were obtained without contrast. Coronal reformatted images were also obtained.This study was performed with techniques to keep radiation doses as low as reasonably achievable (ALARA). Individualized dose reduction techniques using automated exposure control or adjustment of mA and/or kV according to the patient''s size were employed. There is no evidence of intracranial hemorrhage or mass. The ventricular size is within normal limits. There is no evidence of shift of the midline structures. No abnormal extra axial fluid collection is identified. No skull abnormality is seen on the bone window images. There is mild mucosal thickening in both maxillary sinuses. IMPRESSION: No acute intracranial abnormality. Reviewed, Interpreted and Dictated by Memo Callaway III, MD Transcribed by Stacey Staples Authenticated and [facility]
--- NOTE | 2022-08-12 09:22 | CT_ITS ---
FINAL REPORT TECHNIQUE: Thin section axial CT images were obtained through the neck after intravenous contrast administration. Coronal and sagittal reformats were also obtained. This study was performed with techniques to keep radiation doses as low as reasonably achievable (ALARA). Individualized dose reduction techniques using automated exposure control or adjustment of mA and/or kV according to the patient''s size were employed. CLINICAL HISTORY: neck swelling, PATIENT STATES FOR A FEW MOS, NO INJURY FINDINGS: The nasopharynx, oropharynx, hypopharynx and larynx are unremarkable. There is no mass or adenopathy. The thyroid gland is unremarkable. There is mild mucosal thickening in both maxillary sinuses. There is no acute osseous abnormality. IMPRESSION: No acute process. Reviewed, Interpreted and Dictated by Memo Callaway III, MD Transcribed by Stacey Staples Authenticated and [facility]
--- NOTE | 2022-08-12 09:33 | ECG_ITS ---
APPROVED REPORT Exam: Resting ECG HR:75 bpm ECG Measurements Heart Rate 75 AXES VT 155 P 63 QRSd 95 QRS 58 QT 351 T 20 QTc 380 Conclusion SINUS RHYTHM WITH SINUS ARRHYTHMIA NORMAL ECG UNCONFIRMED REPORT Electronically signed by : Wilbert Villalobos MD 08/12/2022 21:39:10
--- NOTE | 2022-08-12 09:41 | HMH.EDGENADL ---
Discharge Plan Disposition Patient Disposition: Home, Self-Care Condition: Good Chief Complaint: Eye Problems Prescriptions Prescriptions: No Action amlodipine 2.5 mg tablet 2.5 mg PO HS Label Comments: TAKE 1 TABLET BY MOUTH AT NIGHT levothyroxine 25 mcg tablet 25 mcg PO DAILY coenzyme Q10 [Co Q-10] 100 mg capsule 100 mg PO DAILY desvenlafaxine succinate 50 mg tablet extended release 24 hr 50 mg PO DAILY lisinopril 20 mg tablet 20 mg PO DAILY Qty: 90 3RF ergocalciferol (vitamin D2) 1,250 mcg (50,000 unit) capsule 50,000 unit PO QWEEK Qty: 10 0RF Referrals Follow up/Referrals: Martha Santos PA [Primary Care Provider] - See instructions Clinical Impressions Clinical Impression: Vertigo, Visual disturbance Instructions Patient Instructions: Benign Paroxysmal Positional Vertigo Discharge ED Provider: Michael Meraz General Adult HPI General Chief complaint: Eye Problems Stated complaint: Blurred vision Time Seen by Provider: 08/12/22 12:02 Mode of Arrival: Ambulatory Source of Information: Patient Limitations: No Limitations Description of Symptoms (Recalled from ER Triage Doc. by RN): Patient presents via POV with complaints of intermittent blurred vision and lightheadedness since Tuesday. Patient states recent medication changes. Restarted Desvenlafaxine and prescribed Valacyclovir. History of Present Illness HPI narrative: Patient presents to the emergency department with visual changes, lightheadedness and swelling of his neck. The patient states that he has been seen by his primary care physician recently for his suspected lymphadenopathy in his neck. He states for the last 6 days he has had difficulty with lightheadedness and blurry vision which waxes and wanes. He states that is not significantly dependent upon head position. He denies any numbness, tingling or weakness in any of his arms or legs. He describes being seen by his primary care physician who is recently been giving him antibiotics, steroids and recently started him on antivirals. She was concerned that dehydration may be playing a part in his lightheadedness and encouraged him to use electrolyte substances. The patient states that this is not significantly improved his symptoms. He did describe a headache initially but denies any significant headache today. Related Data Home Medications Medication Instructions Recorded Confirmed amlodipine 2.5 mg tablet 2.5 mg PO HS 07/21/22 07/21/22 coenzyme Q10 100 mg capsule (Co 100 mg PO DAILY 07/21/22 07/21/22 Q-10) desvenlafaxine succinate 50 mg 50 mg PO DAILY 07/21/22 07/21/22 tablet,extended release 24 hr levothyroxine 25 mcg tablet 25 mcg PO DAILY 07/21/22 07/21/22 Previous Rx's Medication Instructions Recorded ergocalciferol (vitamin D2) 1,250 50,000 unit PO QWEEK #10 caps 09/23/20 mcg (50,000 unit) capsule lisinopril 20 mg tablet 20 mg PO DAILY #90 tabs 02/10/21 Allergies Allergy/AdvReac Type Severity Reaction Status Date / Time No Known Allergies Allergy Verified 07/21/22 08:25 [facility] Disclaimer: The information contained in this section may have been updated after the patient was seen, as this information can be updated by other users. Medical History Chest pain Dizziness Hypertension Palpitations Social History Smoking Status: Never smoker alcohol intake: never current occupational status: other Travel in the last 8 weeks: None ROS Obtained: Yes All systems reviewed & no additional complaints except as documented Eyes Eyes: Reports change in vision ENT Ears, Nose, Mouth, and Throat: Reports dizziness and Reports neck mass Neurologic Neurologic: Reports dizziness and Reports other visual disturbances Physical Exam General General appearance: alert and in no apparent distress Head
[2022-08-12 10:03] LABS: Chloride 97 mmol/L (98-107); Potassium 3.9 mmoL/L (3.5-5.1); Sodium 139 mmol/L (136-145)
[2022-08-12 10:06] LABS: Alanine Aminotransferase 57 U/L (12-78); Albumin Level 4.1 g/dl (3.5-5.0); Albumin/Globulin Ratio 1.6 (1.1-1.8); Alkaline Phosphatase 54 U/L (38-126); Anion Gap 12.9 mEq/L (5-15); Aspartate Amino Transferase 45 U/L (17-59); Bilirubin,Total 0.8 mg/dl (0.2-1.3); Blood Urea Nitrogen 8 mg/dl (9-20); Carbon Dioxide 33 mmol/L (22.0-30.0); Creatine Kinase 263 U/L (55-170); Creatinine Clearance Estimated 160 mL/min (50-200); Estimated Glomerular Filt Rate 98 ml/min (>60); GFR (African American) 119 ML/MIN (>60); Globulin 2.5 g/dL (1.3-3.2); Glucose 122 mg/dl (74-100); Total Protein,Serum 6.6 g/dl (6.3-8.2)
[2022-08-12 10:07] LABS: Basophils % 0.9 % (0.1-2.0); Eosinophils # 0.1 K/mm3 (0.0-0.4); Hematocrit 44.7 % (42.0-52.0); Hemoglobin 15.2 g/dL (14.1-18.0); Lymphocytes # 1.2 K/mm3 (0.7-4.5); Lymphocytes % 25.3 % (10-50); Mean Corpuscular HGB Conc 33.9 g/dL (31.8-35.4); Mean Corpuscular Hemoglobin 29.2 pg (27.0-31.2); Mean Corpuscular Volume 86.2 fl (80-94); Mean Platelet Volume 7.5 fl (7.4-10.4); Monocytes # 0.3 K/mm3 (0.1-1.0); Monocytes % 6.2 % (1.7-9.3); Neutrophils # 3.1 K/mm3 (1.8-7.8); Neutrophils % 65.6 % (37.0-80.0); Platelet Count 192 K/mm3 (142-424); Red Blood Count 5.19 M/mm3 (4.60-6.20); Red Cell Distribution Width 14.3 % (11.5-17.5); White Blood Count 4.7 K/mm3 (4.8-10.8)
[2022-08-12 10:19] LABS: Lactate Dehydrogenase 193 U/L (313-618); Uric Acid 6.4 mg/dl (3.5-8.5)
== END 2022-08-12 12:15 | disposition home or self-care (01) ==
PROVIDERS: Emergency Provider Emergency Medicine; PCP Physician Assistant
DX: R42 Dizziness and giddiness (principal); H53.8 Other visual disturbances; R22.1 Localized swelling, mass and lump, neck
CPT/HCPCS: 70450; 70491; 80053; 82550; 83615; 84550; 85025; 93005; 96360; 99285; Q9967

== ENCOUNTER → 2022-08-13 07:09 | Outpatient (CLI) | payer BC, SELFPAY ==
--- NOTE | 2022-08-13 | CA_ITS ---
APPROVED REPORT Exam: Exercise Treadmill Technologist: Juliana Rios, Ht: 5 ft 5 in Wt: 213 lbs BSA: 2.03 m2 HR: 98 bpm BP: 164/98 mmHg Rhythm: NSR Medical History Medications: Amlodipine,,,,, Lisinopril,,,,, Levothyroxine,,,,, Coenzyme,,,,, Vit D2,,,,, Desvenlafaxine SUCCINATE,,,,, Cardiac Risk Factors: HTN, FHX of CAD Stress Test Details Test: Michael HR Resting HR: 89 bpm Max Heart Rate (APMHR): 189 bpm Max HR Achieved: 170 bpm Target HR (85% APMHR): 161 bpm % of APMHR: 90 Recovery HR: 142 bpm BP Resting BP: 151/87 mmHg Max BP: 198/94 mmHg Recovery BP: 187.0/94.0 mmHg ECG Resting ECG: NSR, T-wave changes in the inferior leads Stress ECG: No change Clinical Exercise duration: 10:59 min Highest Stage Achieved: Exercise capacity: 12.8 METs Stress ECG Conclusion During Michael protocol, the patient experinced lightheaded and leg fatigue. Occasional PVC were present. At peak stress, no ischemic changes were noted. Test Summary REST . . . . . . . Standing REST . . . . . . . Sitting REST 03:13 0.0 0.0 89 . 151/ 87 . . Stage 1 01:00 10.0 1.7 98 . . . . Stage 1 02:00 10.0 1.7 109 . 160/ 90 . . Stage 1 03:00 10.0 1.7 109 . 160/ 90 . . Stage 2 01:00 12.0 2.5 112 . . . . Stage 2 02:00 12.0 2.5 126 . . . . Stage 2 03:00 12.0 2.5 126 . 170/ 90 . . Stage 3 01:00 14.0 3.4 128 . . . . Stage 3 02:00 14.0 3.4 139 . . . . Stage 3 03:00 14.0 3.4 146 . 176/ 85 . . Stage 4 . . . . . . . Myoview Injected Stage 4 01:00 16.0 4.2 166 . . . . Stage 4 01:59 16.0 4.2 169 . . . Stop exercise at 10:59 RECOVERY 01:00 0.0 0.0 133 . . . . RECOVERY 02:00 0.0 0.0 116 . 187/ 94 . . RECOVERY 03:00 0.0 0.0 102 . 170/ 89 . . RECOVERY 04:00 0.0 0.0 98 . 170/ 89 . . RECOVERY 04:17 0.0 0.0 102 . 146/ 86 . . Electronically signed by : Lydia Ortiz, 08/13/2022 20:59:27
--- NOTE | 2022-08-13 07:09 | NM_ITS ---
APPROVED REPORT Exam: Nuclear Stress Test Indication: chest pain..palpitations Patient Location: Outpatient Stress Tech: Juliana Rios [place] Tech:Teetee CameronANNMARIE RT(R)(N) Ht: 5 ft 5 in Wt: 210 lbs HR: 89 bpm BP: 151/87 mmHg BSA: 2.02 m2 TID: 1.08 BMI: 34.9 History: chest pain..palpitations Procedure: Patient exercised on Michael protocol 10:59 minutes and sec, resting heart rate 89 bpm, resting blood pressure 151/84 mmHg, with exercise maximum heart rate achived was 170 bpm which is 90 % of the maximum predicted heart rate and blood pressure was 198/94 mmHg. Patient denied any complaint of chest pain. Patient has exercise capacity, achieved 12.8 METs of workload on treadmill, the blood pressure response to exercise was . Cardiac Stress and Resting SPECT Images: Cardiac Stress and Resting SPECT images were obtained using technetium 99m Myoview 32.4 mCi stress and 10.61 mCi at rest. Resting and stress imaging demonstrates a medium-sized, moderate, predominantly reversible perfusion defect in the basal to mid inferior LV wall. There is also a large-sized, moderate, predominantly reversible anterior perfusion defect from the base and extending distally. Both findings are consistent with predominantly reversible ischemia. Gated images demonstrate mildly reduced LV global systolic function. There is also moderate anterior and inferior LV hypokinesis. LVEF is calculcated at 44%. Conclusion: 1) Medium-sized, moderate, reversible perfusion defect in the basal to mid inferior LV wall, consistent with reversible ischemia. 2) Large-sized, moderate, predominantly reversible anterior perfusion defect from the base and extending distally, consistent with reversible ischemia. 3) Mildly reduced LV global systolic function. There is also moderate anterior and inferior LV hypokinesis. LVEF is calculcated at 44%. Electronically signed by : Lydia Ortiz, 08/13/2022 21:12:41
== END ==
LOC: RAD 07:09
PROVIDERS: PCP Physician Assistant; Visit Provider Nurse Practitioner
DX: R06.00 Dyspnea, unspecified (principal); R07.9 Chest pain, unspecified; R00.2 Palpitations; R42 Dizziness and giddiness; I10 Essential (primary) hypertension; E78.2 Mixed hyperlipidemia; R94.31 Abnormal electrocardiogram [ECG] [EKG]
CPT/HCPCS: 78452; 93017; 93306; A9502

== ENCOUNTER 2022-08-20 08:19 | Day surgery (SDC) | payer BC, SELFPAY ==
[2022-08-20] VITALS (13 sets, daily range): BP systolic 103–138; BP diastolic 63–93; PULSE 67–94; RESP 16–20; TEMP 36.9; O2SAT 91–98; BMI 35.9
--- NOTE | 2022-08-20 07:05 | IR_ITS ---
APPROVED REPORT Patient Location: Outpatient PROCEDURES Left heart catheterization Left ventriculogram Selective coronary angiography INDICATION Abnormal Myoview Informed consent was obtained prior to the procedure. COMPLICATIONS None Estimated Blood Loss: Less than 10 ml TECHNIQUE One percent lidocaine used to anesthetize the right anterior aspect of the wrist. The right radial artery was accessed via the Seldinger technique. A 6 Armenian sheath was placed in the right radial artery. 150 mg magnesium sulfate, 800 mcg of nitroglycerin, 1mg Lidocaine and 5000 U Heparin were given through the arterial sheath. The papa catheter was also used to perform left heart catheterization, left ventriculogram and selective coronary angiogram. At the end of the procedure the sheath was removed good hemostasis was achieved using Traclet band, patient was transferred to the postop holding area in stable condition. ANGIOGRAPHIC RESULTS The left main artery Normal The left anterior descending artery Normal The circumflex artery Dominant normal The right coronary artery Vestigial normal The TA ventriculogram reveals Normal 65% The left ventricular end-diastolic pressure 25 mmHg IMPRESSION Normal coronary arteries Normal ejection fraction Elevated LVEDP consistent with diastolic dysfunction PLAN 1. Avoidance of Pop products 2. Treatment of diastolic dysfunction with sodium and water restriction 3. Risk factor modification 4. Recommend sleep study Electronically signed by : Tarun Wu MD 08/20/2022 12:44:15
== END 2022-08-20 13:18 | disposition home or self-care (01) ==
PROVIDERS: PCP Physician Assistant; Visit Provider Internal Medicine
DX: I25.118 Atherosclerotic heart disease of native coronary artery with other forms of angina pectoris (principal); I10 Essential (primary) hypertension; E78.5 Hyperlipidemia, unspecified; R94.31 Abnormal electrocardiogram [ECG] [EKG]; R94.39 Abnormal result of other cardiovascular function study; Z79.899 Other long term (current) drug therapy
CPT/HCPCS: 93458; 99152; 99153; C1725; C1769; J1644; J2405; Q9967

== ENCOUNTER 2022-08-20 18:04 | Emergency (ER) | payer BC, SELFPAY ==
[2022-08-20 18:06] VITALS: BP 128/88; PULSE 96; RESP 18; TEMP 36.6; O2SAT 97; BMI 35.7
[2022-08-20 18:12] VITALS: BP 128/88; PULSE 101; O2SAT 98
[2022-08-20 18:30] VITALS: BP 130/82; PULSE 91; O2SAT 96
--- NOTE | 2022-08-20 18:33 | HMH.EDGENADL ---
Discharge Plan Disposition Patient Disposition: Home, Self-Care Prescriptions Prescriptions: No Action amlodipine 2.5 mg tablet 2.5 mg PO HS Label Comments: TAKE 1 TABLET BY MOUTH AT NIGHT levothyroxine 25 mcg tablet 25 mcg PO DAILY coenzyme Q10 [Co Q-10] 100 mg capsule 100 mg PO DAILY lisinopril 20 mg tablet 20 mg PO DAILY ergocalciferol (vitamin D2) 1,250 mcg (50,000 unit) capsule 50,000 unit PO QWEEK Referrals Follow up/Referrals: Martha Santos PA [Primary Care Provider] - See instructions Activity Restrictions/Add. Instructions Additional Instructions/Restrictions: Your recent radial cath location did not reveal any acute abnormalities. Specifically there is no evidence of any aneurysm, thrombus, or subcutaneous swelling. Your evaluation was objectively normal. Please return to the emergency part with any concerns otherwise you may follow-up with Dr. Wu as previously instructed. Clinical Impressions Clinical Impression: Encounter for assessment of wound, Encounter for medical screening examination Discharge ED Provider: Sean Ramírez General Adult HPI General Chief complaint: Extremity Problem,Nontraumatic Stated complaint: Right wtist swelling,had heart cath this AM Time Seen by Provider: 08/20/22 18:33 Mode of Arrival: Ambulatory Source of Information: Patient Limitations: No Limitations Description of Symptoms (Recalled from ER Triage Doc. by RN): 32 M presents from home after having a heart cath by Dr. Wu this AM. He states he noticed his right hand swelling and it has become more swollen. He spoke to Dr. Wu who advised him to come to the ED for evaluation. Negative for ecchymosis, but obviously more swollen than his left hand. Pulses are strong and equal for radial and ulnar artery. History of Present Illness HPI narrative: Patient is a 32-year-old male who had a right radial left heart cath today with Dr. Wu this morning and was discharged home and went to play with his son and noted that his right upper extremity from the cath site distal to his hand was swollen. He states that his hand was so swollen he was having hard time making a fist. He called Dr. Wu told him to come to the emergency department for evaluation. He states that the swelling is significantly improved since he called Dr. Wu. He is currently able to squeeze his hand without any difficulty but still claims that it is mildly swollen in comparison with the left. No significant external bleeding no complications from the cath this morning. Related Data Home Medications Medication Instructions Recorded Confirmed amlodipine 2.5 mg tablet 2.5 mg PO HS Supplement 07/21/22 08/20/22 coenzyme Q10 100 mg capsule (Co 100 mg PO DAILY Supplement 07/21/22 08/20/22 Q-10) levothyroxine 25 mcg tablet 25 mcg PO DAILY Thyroid 07/21/22 08/20/22 ergocalciferol (vitamin D2) 1,250 50,000 unit PO QWEEK Supplement 08/20/22 08/20/22 mcg (50,000 unit) capsule lisinopril 20 mg tablet 20 mg PO DAILY High blood pressure 08/20/22 08/20/22 Allergies Allergy/AdvReac Type Severity Reaction Status Date / Time No Known Allergies Allergy Verified 08/17/22 14:21 [facility] Disclaimer: The information contained in this section may have been updated after the patient was seen, as this information can be updated by other users. Medical History Chest pain Dizziness Hypertension Palpitations Social History Smoking Status: Never smoker alcohol intake: never current occupational status: other Travel in the last 8 weeks: None ROS Obtained: Yes All systems reviewed & no additional complaints except as documented Physical Exam General General appearance: alert and in no apparent distress Respiratory Respiratory exam: Present normal lung sounds bilaterally; Abs
--- NOTE | 2022-08-20 18:42 | PC.NURSE ---
JOANNE DUMONT AT
[2022-08-20 18:47] VITALS: BP 130/62; PULSE 96; RESP 19; TEMP 36.7; O2SAT 98
== END 2022-08-20 18:52 | disposition home or self-care (01) ==
PROVIDERS: Emergency Provider Student in an Organized Health Care Education/Training Program; PCP Physician Assistant
DX: I97.89 Other postprocedural complications and disorders of the circulatory system, not elsewhere classified (principal); R22.31 Localized swelling, mass and lump, right upper limb; Y84.0 Cardiac catheterization as the cause of abnormal reaction of the patient, or of later complication, without mention of misadventure at the time of the procedure
CPT/HCPCS: 76882; 99283; 99284

== ENCOUNTER 2022-08-25 18:23 | Emergency (ER) | payer BC, SELFPAY ==
[2022-08-25] VITALS (7 sets, daily range): BP systolic 104–158; BP diastolic 60–89; PULSE 70–100; RESP 16–18; TEMP 36.8; O2SAT 95–100; BMI 35.7
--- NOTE | 2022-08-25 18:18 | ECG_ITS ---
APPROVED REPORT Exam: Resting ECG HR:98 bpm ECG Measurements Heart Rate 98 AXES SD 147 P 67 QRSd 95 QRS 64 QT 334 T 34 QTc 390 Conclusion SINUS RHYTHM WITH SINUS ARRHYTHMIA NORMAL ECG UNCONFIRMED REPORT Electronically signed by : Wilbert Villalobos MD 08/26/2022 21:00:24
--- NOTE | 2022-08-25 18:54 | HMH.EDGENADL ---
Discharge Plan Disposition Patient Disposition: Home, Self-Care Prescriptions Prescriptions: No Action amlodipine 2.5 mg tablet 2.5 mg PO HS Label Comments: TAKE 1 TABLET BY MOUTH AT NIGHT levothyroxine 25 mcg tablet 25 mcg PO DAILY coenzyme Q10 [Co Q-10] 100 mg capsule 100 mg PO DAILY lisinopril 20 mg tablet 20 mg PO DAILY ergocalciferol (vitamin D2) 1,250 mcg (50,000 unit) capsule 50,000 unit PO QWEEK Clinical Impressions Clinical Impression: Chest pain, Anxiety Instructions Patient Instructions: DI for Atypical Chest Pain Discharge ED Provider: Sean Ramírez General Adult HPI <Sean Ramírez MD - Last Filed: 08/25/22 19:11> General Chief complaint: Chest Pain Stated complaint: CHEST PAIN Time Seen by Provider: 08/25/22 18:54 History of Present Illness HPI narrative: 32-year-old male history of anxiety stress recently had a heart cath without any abnormalities additionally has had a recent work-up for neck pain and swelling which did not yield a diagnosis presenting today with recurrent chest pain. States he was at work had 30 minutes of substernal chest pain that any radiation or diaphoresis or shortness of breath he was mildly hypertensive and sent off of work and told that he could either go home or come to the hospital and he chose to come back to the hospital. Patient denies any fevers chills shortness of breath or any ongoing symptoms. Additionally I saw the patient after his heart cath personally for swelling in his right hand at which point he had objectively no abnormalities on his exam. This has since improved and resolved since I saw him last in the ED. Related Data Home Medications Medication Instructions Recorded Confirmed amlodipine 2.5 mg tablet 2.5 mg PO HS Supplement 07/21/22 08/20/22 coenzyme Q10 100 mg capsule (Co 100 mg PO DAILY Supplement 07/21/22 08/20/22 Q-10) levothyroxine 25 mcg tablet 25 mcg PO DAILY Thyroid 07/21/22 08/20/22 ergocalciferol (vitamin D2) 1,250 50,000 unit PO QWEEK Supplement 08/20/22 08/20/22 mcg (50,000 unit) capsule lisinopril 20 mg tablet 20 mg PO DAILY High blood pressure 08/20/22 08/20/22 Allergies Allergy/AdvReac Type Severity Reaction Status Date / Time No Known Allergies Allergy Verified 08/17/22 14:21 PFSH <Sean Ramírez MD - Last Filed: 08/25/22 19:11> [facility] Disclaimer: The information contained in this section may have been updated after the patient was seen, as this information can be updated by other users. Medical History Chest pain Dizziness Hypertension Palpitations Social History Smoking Status: Never smoker alcohol intake: never current occupational status: other Travel in the last 8 weeks: None <Sean Ramírez MD - Last Filed: 08/25/22 19:11> ROS Obtained: Yes All systems reviewed & no additional complaints except as documented Physical Exam <Sean Ramírez MD - Last Filed: 08/25/22 19:11> General General appearance: alert Respiratory Respiratory exam: Present normal lung sounds bilaterally; Absent respiratory distress Cardiovascular Cardiovascular exam: Present regular rate; Absent tachycardia Neurological Exam Neurological exam: Present alert and oriented X3 Medical Decision Making <Sean Ramírez MD - Last Filed: 08/25/22 19:11> Vineet Inquiry Pt receiving controlled substance: No Vital Signs: 08/25/22 18:49 08/25/22 19:30 08/25/22 20:00 Temperature 98.3 F Temperature Source Oral Pulse Rate 78 80 Pulse Rate [Left] 100 H Respiratory Rate 18 16 18 Blood Pressure 122/76 129/77 Blood Pressure [Right Arm] 158/89 H Blood Pressure Mean 91 91 Blood Pressure Mean [Right Arm] 112 02 Sat by Pulse Oximetry 100 95 98 08/25/22 20:30 08/25/22 21:00 08/25/22 21:30 Temperature Temperature Source Pulse Rate 76 70 74 Pulse Rate
--- NOTE | 2022-08-25 18:55 | PC.NURSE ---
DR BARRY AT BS
--- NOTE | 2022-08-25 19:05 | XR_ITS ---
PROCEDURE INFORMATION: Exam: XR Chest Exam date and time: 08/25/2022 7:14 PM Age: 32 years old Clinical indication: Pain; Chest pressure; Additional info: Dyspnea TECHNIQUE: Imaging protocol: Radiologic exam of the chest. Views: 1 view. COMPARISON: CR XR CHEST 2V 07/07/2022 4:45 PM FINDINGS: Lungs: Unremarkable. No consolidation. Pleural spaces: Unremarkable. No pleural effusion. No pneumothorax. Heart/Mediastinum: Unremarkable. No cardiomegaly. Bones/joints: Unremarkable. IMPRESSION: No acute findings.
[2022-08-25 19:12] LABS: Basophils % 0.4 % (0.1-2.0); Eosinophils # 0.3 K/mm3 (0.0-0.4); Eosinophils % 4.3 % (0.1-12.0); Hematocrit 44.8 % (42.0-52.0); Hemoglobin 14.9 g/dL (14.1-18.0); Lymphocytes # 1.2 K/mm3 (0.7-4.5); Lymphocytes % 19.6 % (10-50); Mean Corpuscular HGB Conc 33.3 g/dL (31.8-35.4); Mean Corpuscular Hemoglobin 28.8 pg (27.0-31.2); Mean Corpuscular Volume 86.7 fl (80-94); Mean Platelet Volume 7.5 fl (7.4-10.4); Monocytes # 0.6 K/mm3 (0.1-1.0); Monocytes % 9.2 % (1.7-9.3); Neutrophils # 4.1 K/mm3 (1.8-7.8); Neutrophils % 66.5 % (37.0-80.0); Platelet Count 198 K/mm3 (142-424); Red Blood Count 5.16 M/mm3 (4.60-6.20); Red Cell Distribution Width 14.5 % (11.5-17.5); White Blood Count 6.1 K/mm3 (4.8-10.8)
[2022-08-25 19:13] LABS: Chloride 101 mmol/L (98-107); Potassium 4.2 mmoL/L (3.5-5.1)
[2022-08-25 19:15] LABS: Sodium 142 mmol/L (136-145)
[2022-08-25 19:16] LABS: Anion Gap 13.2 mEq/L (5-15); Blood Urea Nitrogen 10 mg/dl (9-20); Carbon Dioxide 32 mmol/L (22.0-30.0); Creatinine Clearance Estimated 148 mL/min (50-200); Estimated Glomerular Filt Rate 87 ml/min (>60); GFR (African American) 105 ML/MIN (>60)
[2022-08-25 19:17] LABS: Calcium 9.2 mg/dl (8.4-10.2); Glucose 119 mg/dl (74-100)
--- NOTE | 2022-08-25 19:18 | PC.NURSE ---
XRAY AT BS
[2022-08-25 19:34] LABS: Troponin I < 0.01 ng/ml (0.00-0.034)
[2022-08-25 23:09] LABS: Troponin I < 0.01 ng/ml (0.00-0.034)
== END 2022-08-25 23:50 | disposition home or self-care (01) ==
PROVIDERS: Emergency Provider Student in an Organized Health Care Education/Training Program; PCP Physician Assistant
DX: R07.9 Chest pain, unspecified (principal); F41.9 Anxiety disorder, unspecified; I10 Essential (primary) hypertension
CPT/HCPCS: 36415; 71045; 80048; 84484; 85025; 93005; 96361; 96374; 99285

== ENCOUNTER 2022-10-14 22:33 | Emergency (ER) | payer BC, SELFPAY ==
--- NOTE | 2022-10-14 22:36 | ECG_ITS ---
APPROVED REPORT Exam: Resting ECG HR:109 bpm ECG Measurements Heart Rate 109 AXES TX 153 P 66 QRSd 101 QRS 61 QT 348 T 40 QTc 412 Conclusion SINUS TACHYCARDIA WITH OCCASIONAL VENTRICULAR PREMATURE COMPLEXES NONSPECIFIC T-WAVE ABNORMALITY ABNORMAL RHYTHM ECG UNCONFIRMED REPORT Electronically signed by : Wilbert Villalobos MD 10/15/2022 17:13:07
[2022-10-14 22:40] VITALS: BP 166/103; BP 169/104; PULSE 88; RESP 13; RESP 14; TEMP 36.8; O2SAT 98; BMI 36.6
[2022-10-14 22:41] VITALS: BP 169/104; RESP 12
--- NOTE | 2022-10-14 22:49 | XR_ITS ---
PROCEDURE INFORMATION: Exam: XR Chest Exam date and time: 10/14/2022 10:52 PM Age: 32 years old Clinical indication: Sternal or substernal pain; Additional info: THEODORA Robertson TECHNIQUE: Imaging protocol: Radiologic exam of the chest. Views: 1 view. Total images: 1 COMPARISON: CR XR CHEST PORTABLE 08/25/2022 7:14 PM FINDINGS: Tubes, catheters and devices: EKG leads are present. Lungs: Unremarkable. No consolidation. No pulmonary vascular congestion or edema. Pleural spaces: Unremarkable. No pleural effusion. No pneumothorax. Heart/Mediastinum: Unremarkable. No cardiomegaly. No mediastinal widening or hilar enlargement. Bones/joints: Unremarkable. Other findings: Lordotic positioning. IMPRESSION: No radiographically acute cardiopulmonary process.
[2022-10-14 23:01] VITALS: BP 152/88; RESP 14
[2022-10-14 23:02] LABS: Alanine Aminotransferase 53 U/L (12-78); Albumin Level 5.2 g/dl (3.5-5.0); Albumin/Globulin Ratio 1.6 (1.1-1.8); Alkaline Phosphatase 76 U/L (38-126); Anion Gap 13.5 mEq/L (5-15); Aspartate Amino Transferase 48 U/L (17-59); Bilirubin,Total 0.7 mg/dl (0.2-1.3); Blood Urea Nitrogen 8 mg/dl (9-20); Calcium 9.3 mg/dl (8.4-10.2); Carbon Dioxide 31 mmol/L (22.0-30.0); Chloride 103 mmol/L (98-107); Creatinine Clearance Estimated 151 mL/min (50-200); Estimated Glomerular Filt Rate 87 ml/min (>60); GFR (African American) 105 ML/MIN (>60); Globulin 3.2 g/dL (1.3-3.2); Glucose 101 mg/dl (74-100); Lipase 95 U/L (23-300); Potassium 3.5 mmoL/L (3.5-5.1); Sodium 144 mmol/L (136-145); Total Protein,Serum 8.4 g/dl (6.3-8.2)
[2022-10-14 23:07] LABS: D-Dimer 0.33 ug/mL (0.0-0.5)
--- NOTE | 2022-10-14 23:08 | HMH.EDGENADL ---
Discharge Plan Disposition Patient Disposition: Home, Self-Care Condition: Good Prescriptions Prescriptions: No Action amlodipine 2.5 mg tablet 2.5 mg PO HS Patient Comments: TAKE 1 TABLET BY MOUTH AT NIGHT levothyroxine 25 mcg tablet 25 mcg PO DAILY coenzyme Q10 [Co Q-10] 100 mg capsule 100 mg PO DAILY lisinopril 20 mg tablet 20 mg PO DAILY ergocalciferol (vitamin D2) 1,250 mcg (50,000 unit) capsule 50,000 unit PO QWEEK Referrals Follow up/Referrals: Martha Santos PA [Primary Care Provider] - See instructions Clinical Impressions Clinical Impression: Chest pain Discharge ED Provider: Mauri Lr General Adult HPI <Adrienne Interiano DO - Last Filed: 10/15/22 00:04> General Chief complaint: Chest Pain Stated complaint: chest pain Time Seen by Provider: 10/14/22 22:39 Mode of Arrival: Ambulatory Source of Information: Patient Limitations: No Limitations Description of Symptoms (Recalled from ER Triage Doc. by RN): pt states he is having L sharp chest pain over the last few hours. pt also c/o chills, LARA and his face is flushed. pt denies SOA. pt states he has a heart cath in July and all they found was some fluid on his heart. pts dog behaviorist is Dr. Wu. History of Present Illness HPI narrative: This patient is a 32-year-old male who reports a history of hypertension, hyperlipidemia, obesity, and cardiac diastolic dysfunction on medical record review presenting to the emergency department for evaluation with concern for sharp chest pain that has been intermittent. He is currently asymptomatic at this time. He states that he follows closely with cardiology and had a heart cath in July. He was found to have small amount of fluid around his heart, which he was told was likely due to a virus. He states that he was told that he had mumps. He recently tested negative for mumps. He states that he has been under a great amount of stress for the last 2 days and began having intermittent chest pain today. He states that it is substernal. It seems to get worse with eating. He also notes an episode of nausea and emesis prior to arrival. He states that he is currently asymptomatic and pain-free. He denies any recent fevers, chills, shortness of breath, abdominal pain, changes bowel movements, rashes, swelling, or other concerns. I independently reviewed patient's prior medical records which demonstrated he had an abnormal stress test initially and then reassuring cardiac catheterization afterwards. Related Data Home Medications Medication Instructions Recorded Confirmed amlodipine 2.5 mg tablet 2.5 mg PO HS Supplement 07/21/22 09/21/22 coenzyme Q10 100 mg capsule (Co 100 mg PO DAILY Supplement 07/21/22 09/21/22 Q-10) levothyroxine 25 mcg tablet 25 mcg PO DAILY Thyroid 07/21/22 09/21/22 ergocalciferol (vitamin D2) 1,250 50,000 unit PO QWEEK Supplement 08/20/22 09/21/22 mcg (50,000 unit) capsule lisinopril 20 mg tablet 20 mg PO DAILY High blood pressure 08/20/22 09/21/22 Allergies Allergy/AdvReac Type Severity Reaction Status Date / Time No Known Allergies Allergy Verified 09/21/22 11:56 [facility] <Adrienne Interiano DO - Last Filed: 10/15/22 00:04> [facility] Disclaimer: The information contained in this section may have been updated after the patient was seen, as this information can be updated by other users. Medical History Chest pain Diastolic dysfunction Dizziness Elevated left ventricular end-diastolic pressure (LVEDP) HLD (hyperlipidemia) Hypertension Hypertension Palpitations Sinusitis TMJ (temporomandibular joint syndrome) Social History Smoking Status: Never smoker alcohol intake: never current occupational status: other Travel in the last 8 weeks: None <Adrienne Interiano DO - Last Filed: 10/15/22 00:04> ROS Obtained: Yes All systems revi
[2022-10-14 23:16] LABS: Troponin I < 0.01 ng/ml (0.00-0.034)
[2022-10-14 23:31] VITALS: BP 139/86; RESP 12
[2022-10-15] VITALS: BP 131/84; RESP 13
[2022-10-15 00:30] VITALS: BP 130/80; PULSE 82; RESP 17; O2SAT 99
[2022-10-15 00:39] LABS: Hematocrit 47.7 % (42.0-52.0); Hemoglobin 16.5 g/dL (14.1-18.0); Mean Corpuscular HGB Conc 34.6 g/dL (31.8-35.4); Mean Corpuscular Hemoglobin 29.1 pg (27.0-31.2); Mean Corpuscular Volume 84.1 fl (80-94); Mean Platelet Volume 9.9 fl (7.4-10.4); Neutrophils % 54.6 % (37.0-80.0); Platelet Count 263 K/mm3 (142-424); Red Blood Count 5.67 M/mm3 (4.60-6.20); Red Cell Distribution Width 13.5 % (11.5-17.5)
[2022-10-15 00:40] LABS: Basophils % 0.5 % (0.1-2.0); Eosinophils # 0.3 K/mm3 (0.0-0.4); Eosinophils % 3.3 % (0.1-12.0); Lymphocytes # 2.6 K/mm3 (0.7-4.5); Monocytes # 0.9 K/mm3 (0.1-1.0); Monocytes % 10.6 % (1.7-9.3); Neutrophils # 4.7 K/mm3 (1.8-7.8)
[2022-10-15 00:41] LABS: White Blood Count 8.7 K/mm3 (4.8-10.8)
[2022-10-15 01:00] VITALS: BP 134/83; PULSE 84; RESP 16; O2SAT 99
[2022-10-15 01:30] VITALS: BP 124/82; PULSE 79; RESP 16; O2SAT 99
[2022-10-15 01:59] LABS: Troponin I < 0.01 ng/ml (0.00-0.034)
[2022-10-15 02:12] VITALS: BP 109/55; PULSE 72; RESP 19; TEMP 36.6; O2SAT 100
== END 2022-10-15 02:15 | disposition home or self-care (01) ==
PROVIDERS: Emergency Medicine; Emergency Provider Emergency Medicine; PCP Physician Assistant
DX: R07.9 Chest pain, unspecified (principal); R51.9 Headache, unspecified; I11.9 Hypertensive heart disease without heart failure; E78.5 Hyperlipidemia, unspecified; R00.0 Tachycardia, unspecified
CPT/HCPCS: 71045; 80053; 83690; 84484; 85025; 85378; 93005; 96374; 96375; 99285; J2405

== ENCOUNTER → 2022-11-05 18:52 | Outpatient (CLI) | payer BC, SELFPAY | PROVIDERS: PCP Physician Assistant; Visit Provider Internal Medicine | DX: R06.00 Dyspnea, unspecified (principal); I20.8 Other forms of angina pectoris; R94.30 Abnormal result of cardiovascular function study, unspecified; R94.31 Abnormal electrocardiogram [ECG] [EKG] | CPT/HCPCS: 93225; 93226 ==

== ENCOUNTER 2023-02-23 15:34 | Emergency (ER) | payer BC, SELFPAY ==
[2023-02-23] VITALS (9 sets, daily range): BP systolic 130–173; BP diastolic 86–99; PULSE 64–88; RESP 13–18; TEMP 36.7–37.2; O2SAT 95–99; BMI 34.1
--- NOTE | 2023-02-23 | ECG_ITS ---
APPROVED REPORT Exam: Resting ECG HR:86 bpm ECG Measurements Heart Rate 86 AXES RI 137 P 69 QRSd 99 QRS 55 QT 331 T 48 QTc 374 Conclusion SINUS RHYTHM WITH SINUS ARRHYTHMIA NORMAL ECG UNCONFIRMED REPORT Electronically signed by : Wilbert Villalobos MD 02/23/2023 18:24:58
--- NOTE | 2023-02-23 15:48 | PC.NURSE ---
ER AT BEDSIDE
--- NOTE | 2023-02-23 15:59 | XR_ITS ---
PROCEDURE INFORMATION: Exam: XR Chest Exam date and time: 02/23/2023 4:10 PM Age: 32 years old Clinical indication: Sternal or substernal pain; Additional info: Cp TECHNIQUE: Imaging protocol: Radiologic exam of the chest. Views: 1 view. COMPARISON: CR XR CHEST PORTABLE 10/14/2022 10:52 PM FINDINGS: Lungs: No evidence of acute pulmonary disease or infiltrates; lung woods appear clear. Pleural spaces: No evidence of pleural effusion, pneumothorax, or pleural thickening in the visualized pleural spaces. Heart/Mediastinum: No evidence of mediastinal widening or cardiac silhouette enlargement; the mediastinum and heart appear within normal limits for contour and size. Bones/joints: No evidence of acute osseous abnormalities within the visualized portions of the thoracic spine and ribs. Osseous structures appear appropriate for patient age. IMPRESSION: Negative study. No acute cardiopulmonary abnormalities identified. Osseous structures within the visualized portions of the thoracic spine and ribs show no acute abnormalities and appear appropriate for patient age.
--- NOTE | 2023-02-23 16:01 | HMH.EDCP ---
Discharge Plan Disposition Patient Disposition: Home, Self-Care Prescriptions Prescriptions: No Action lisinopril 20 mg tablet 20 mg PO DAILY thyroid (pork) [[place] Thyroid] 15 mg tablet 15 mg PO DAILY Referrals Follow up/Referrals: Martha Santos PA [Primary Care Provider] - See instructions Activity Restrictions/Add. Instructions Additional Instructions/Restrictions: At this time it was felt you are safe to be discharged home. If new or worsening symptoms please do not hesitate to return the emergency department. If symptoms persist please follow-up with your family doctor as you are able as discussed. Clinical Impressions Clinical Impression: Chest pain Discharge ED Provider: Tommy Barnes General Chief Complaint: Chest Pain Stated Complaint: Chest Pain Time Seen by Provider: 02/23/23 15:38 Mode of Arrival: Ambulatory Source of Information: Patient Limitations: No Limitations Description of Symptoms (Recalled from ER Triage Doc. 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 AND THE PAIN WOKE HIM UP THIS AFTERNOON AROUND 1300 WITH NUMBESS AND PAIN NOTED TO HIS L ARM WELL, REPORTS DIZZINESS OFF AND ON SINCE APRIL AND HIS PCP ADJUSTING MEDICATIONS, WAS RECENTLY TAKEN OFF 3 MEDICATIONS A FEW WEEKS AGO, STATES THE CHEST PAIN IS INTERMITTENT, EXPLAINS IT A SHARP PAIN ESPECIALLY WHEN HE TAKES A DEEP BREATH, ALSO REPORTS A HEADACHE, HAD A HEART CATH EARLIER THIS YEAR WHERE THEY TOLD HIM HE HAD FLUID AROUND HIS HEART, DENIES ANY DIZZINESS CURRENTLY, DENIES SOB, FEVER, AND CHILLS History of Present Illness HPI narrative: Patient is a 32-year-old male who presents emergency department for evaluation of chest pain. Patient reportedly has past medical history of mumps recently diagnosed earlier this year, chronic intermittent chest pain, chronic intermittent headaches, neurologic symptoms, facial flushing has been evaluated by multiple physicians without definitive etiology who presents to the emergency department for evaluation of chest pain. Onset was acute, occurring last night, left-sided intermittently radiating down the left upper extremity. Over the last few weeks patient was discontinued on multiple medications in an attempt to see if these were contributing to his chronic symptoms for which his headache intermittently resolved. Due to elevated blood pressure and history of Francheska's thyroiditis he recently restarted his thyroid medication per his PCP. Headache on the right has resumed at his baseline. Denies trauma. No other acute complaints at this time. Per review of cardiology note in July patient had heart catheterization which was normal with the exception of elevated left ventricular end-diastolic pressure. Per review of imaging in July noncontrasted CT scan of head is normal. Related Data Home Medications Medication Instructions Recorded Confirmed lisinopril 20 mg tablet 20 mg PO DAILY High blood pressure 08/20/22 11/04/22 thyroid (pork) 15 mg tablet 15 mg PO DAILY 02/23/23 02/23/23 ([place] [facility]) Allergies Allergy/AdvReac Type Severity Reaction Status Date / Time No Known Allergies Allergy Verified 02/23/23 15:49 [facility] Disclaimer: The information contained in this section may have been updated after the patient was seen, as this information can be updated by other users. Medical History Chest pain Diastolic dysfunction Dizziness Elevated left ventricular end-diastolic pressure (LVEDP) HLD (hyperlipidemia) Hypertension Hypertension Palpitations Sinusitis TMJ (temporomandibular joint syndrome) Social History Smoking Status: Never smoker alcohol intake: never current occupational status: other Travel in the last 8 weeks: None ROS Obtained: Yes Systems reviewed as appropriate & no a
[2023-02-23 16:13] LABS: Basophils # 0.1 K/mm3 (0-0.2); Basophils % 0.9 % (0.1-2.0); Eosinophils # 0.1 K/mm3 (0.0-0.4); Eosinophils % 1.5 % (0.1-12.0); Hematocrit 48.1 % (42.0-52.0); Hemoglobin 16.8 g/dL (14.1-18.0); Lymphocytes # 1.6 K/mm3 (0.7-4.5); Lymphocytes % 28.6 % (10-50); Mean Corpuscular Hemoglobin 30.3 pg (27.0-31.2); Mean Corpuscular Volume 86.5 fl (80-94); Mean Platelet Volume 7.6 fl (7.4-10.4); Monocytes # 0.4 K/mm3 (0.1-1.0); Monocytes % 7.3 % (1.7-9.3); Neutrophils # 3.4 K/mm3 (1.8-7.8); Neutrophils % 61.7 % (37.0-80.0); Platelet Count 211 K/mm3 (142-424); Red Blood Count 5.56 M/mm3 (4.60-6.20); Red Cell Distribution Width 14.3 % (11.5-17.5); White Blood Count 5.6 K/mm3 (4.8-10.8)
[2023-02-23 16:15] LABS: Alanine Aminotransferase 39 U/L (12-78); Albumin Level 4.7 g/dl (3.5-5.0); Albumin/Globulin Ratio 1.5 (1.1-1.8); Alkaline Phosphatase 63 U/L (38-126); Anion Gap 11.7 mEq/L (5-15); Aspartate Amino Transferase 44 U/L (17-59); Blood Urea Nitrogen 9 mg/dl (9-20); Calcium 8.9 mg/dl (8.4-10.2); Carbon Dioxide 29 mmol/L (22.0-30.0); Chloride 101 mmol/L (98-107); Creatinine Clearance Estimated 156 mL/min (50-200); Estimated Glomerular Filt Rate 98 ml/min (>60); GFR (African American) 119 ML/MIN (>60); Globulin 3.2 g/dL (1.3-3.2); Glucose 99 mg/dl (74-100); Potassium 3.7 mmoL/L (3.5-5.1); Sodium 138 mmol/L (136-145); Total Protein,Serum 7.9 g/dl (6.3-8.2)
[2023-02-23 16:20] LABS: D-Dimer 0.45 ug/mL (0.0-0.5)
[2023-02-23 16:31] LABS: Troponin I < 0.01 ng/ml (0.00-0.034)
[2023-02-23 19:32] LABS: Troponin I < 0.01 ng/ml (0.00-0.034)
== END 2023-02-23 19:46 | disposition home or self-care (01) ==
PROVIDERS: Emergency Provider Emergency Medicine; PCP Physician Assistant
DX: R07.2 Precordial pain (principal); R07.1 Chest pain on breathing; R51.9 Headache, unspecified; I49.9 Cardiac arrhythmia, unspecified; R42 Dizziness and giddiness; I11.0 Hypertensive heart disease with heart failure; I50.1 Left ventricular failure, unspecified; E78.5 Hyperlipidemia, unspecified
CPT/HCPCS: 36415; 71045; 80053; 84484; 85025; 85378; 93005; 96374; 96375; 99285; J0131

== ENCOUNTER 2023-03-08 16:40 | Emergency (ER) | payer BC, SELFPAY ==
[2023-03-08 17:10] VITALS: BP 126/86; PULSE 97; RESP 18; TEMP 36.8; O2SAT 100; BMI 33.7
--- NOTE | 2023-03-08 17:18 | EXP.UTC ---
Discharge Plan Disposition Patient Disposition: Home, Self-Care Condition: Good Prescriptions Prescriptions: New ondansetron 4 mg Tablet,Disintegrating 4 mg PO Q8H PRN (Reason: Nausea) Qty: 12 0RF No Action lisinopril 20 mg tablet 20 mg PO DAILY metoprolol succinate 25 mg tablet extended release 24 hr 25 mg PO DAILY Patient Comments: TAKE 1 TABLET BY MOUTH EVERY DAY AT BEDTIME sertraline 50 mg tablet 50 mg PO DAILY cholecalciferol (vitamin D3) 125 mcg (5,000 unit) tablet 125 mcg PO DAILY Patient Comments: TAKE 1 TABLET BY MOUTH ONCE DAILY thyroid (pork) [[place] Thyroid] 15 mg tablet 15 mg PO DAILY Referrals Follow up/Referrals: Provider,Referral, MD [Primary Care Provider] - See instructions Activity Restrictions/Add. Instructions Additional Instructions/Restrictions: Drink plenty of fluids. Take tylenol or ibuprofen for pain or fever. Take the zofran (ondesetron) as directed as needed for nausea/vomiting. Follow up with your regular doctor. GO TO THE ER FOR ANY WORSENING SYMPTOMS Clinical Impressions Clinical Impression: Gastroenteritis, Acute viral syndrome Stand Alone Forms Stand Alone Forms: Work/School Release Instructions Patient Instructions: Viral Gastroenteritis, DI for Viral Gastroenteritis -- Adult, Ondansetron Discharge ED Provider: Lawrence Cardenas [facility] General Stated complaint: feeling bad and vomiting with loose stools Time Seen by Provider: 03/08/23 17:18 History of Present Illness Provider Complaint: He states that for the past 1 day he has had n/v/d. He denies any fever/chills/body aches. Related Data Home Medications Medication Instructions Recorded Confirmed lisinopril 20 mg tablet 20 mg PO DAILY High blood pressure 08/20/22 03/08/23 cholecalciferol (vitamin D3) 125 125 mcg PO DAILY 03/08/23 03/08/23 mcg (5,000 unit) tablet metoprolol succinate 25 mg 25 mg PO DAILY 03/08/23 03/08/23 tablet,extended release 24 hr sertraline 50 mg tablet 50 mg PO DAILY 03/08/23 03/08/23 thyroid (pork) 15 mg tablet 15 mg PO DAILY 03/08/23 03/08/23 ([place] Thyroid) Previous Rx's Medication Instructions Recorded ondansetron 4 mg disintegrating 4 mg PO Q8H PRN Nausea #12 tabs 03/08/23 tablet Allergies Allergy/AdvReac Type Severity Reaction Status Date / Time No Known Allergies Allergy Verified 03/08/23 17:38 [facility] Disclaimer: The information contained in this section may have been updated after the patient was seen, as this information can be updated by other users. Medical History Chest pain Diastolic dysfunction Dizziness Elevated left ventricular end-diastolic pressure (LVEDP) HLD (hyperlipidemia) Hypertension Hypertension Palpitations Sinusitis TMJ (temporomandibular joint syndrome) Social History Smoking Status: Never smoker alcohol intake: never current occupational status: other Travel in the last 8 weeks: None ROS Obtained: Yes All systems reviewed & no additional complaints except as documented Constitutional Constitutional: Reports chills and Denies fever(s) Eyes Eyes: Denies eye discharge ENT Ears, Nose, Mouth, and Throat: Reports as per HPI Cardiovascular Cardiovascular: Denies chest pain Respiratory Respiratory: Denies chest congestion and Reports cough Gastrointestinal Gastrointestingal: Reports nausea; Denies abdominal pain, constipation, cramping, diarrhea or vomiting Musculoskeletal Musculoskeletal: Denies arthralgias Integumentary/Breasts Skin/Breast: Denies rash Neurologic Neurologic: Denies paresthesias Physical Exam General General appearance: alert and in no apparent distress Head Head exam: atraumatic and normocephalic Eye Eye exam: Present normal appearance, PERRL and EOMI ENT ENT exam: Present normal exam, normal oropharynx, mucous membrane
[2023-03-08 17:32] LABS: UTC Influenza A Antigen Negative (Negative); UTC Influenza B Antigen Negative (Negative)
[2023-03-08 17:54] VITALS: BP 126/86; PULSE 97; RESP 18; TEMP 36.8; O2SAT 100
== END 2023-03-08 17:54 | disposition home or self-care (01) ==
PROVIDERS: Emergency Provider Nurse Practitioner Family
DX: A08.4 Viral intestinal infection, unspecified (principal); R11.2 Nausea with vomiting, unspecified; R68.83 Chills (without fever); M79.18 Myalgia, other site; I10 Essential (primary) hypertension; E78.5 Hyperlipidemia, unspecified
CPT/HCPCS: 87635; 87804; 87880; 99212; 99214; G0463

== ENCOUNTER 2023-06-17 07:29 | Outpatient (CLI) | payer BC, SELFPAY ==
--- NOTE | 2023-06-17 07:29 | MR_ITS ---
FINAL REPORT CLINICAL HISTORY: New onset headache, constant. family history aneurysm. exam was supposed to be done with contrast but done without. FINDINGS: Multiplanar MR imaging of the brain was performed without contrast. There is no evidence of intracranial hemorrhage or mass. The ventricular size is normal. There is no evidence of shift of the midline structures. No area of restricted diffusion is identified. The posterior fossa and brainstem have an unremarkable appearance. Normal major vessel vascular flow voids are seen. There is mild mucosal thickening in the maxillary sinuses. IMPRESSION: Unremarkable brain with no focal abnormality identified. Reviewed, Interpreted and Dictated by Memo Callaway III, MD Transcribed by Stacey Staples Authenticated and [facility]
--- NOTE | 2023-06-17 07:29 | MR_ITS ---
FINAL REPORT CLINICAL HISTORY: Eval posterior circulation, new bhagat, dizzy, vision FINDINGS: Multiple projection images of the brain arterial vasculature were obtained without contrast. The raw data images were also reviewed. The distal internal carotid, distal vertebral and basilar arteries have an unremarkable appearance without evidence of significant stenosis or occlusion. The proximal anterior, middle and posterior cerebral arteries have an unremarkable appearance. There is no evidence of significant stenosis or major branch occlusion. No aneurysm or vascular malformation is identified. IMPRESSION: Unremarkable MR angiogram of the head. Reviewed, Interpreted and Dictated by Memo Callaway III, MD Transcribed by Stacey Staples Authenticated and [facility]
--- NOTE | 2023-06-17 07:40 | XR_ITS ---
FINAL REPORT CLINICAL HISTORY: RULE OUT METALLIC FOREIGN BODY FOR MRI FINDINGS: Orbits Two views were obtained. No foreign body identified. IMPRESSION: No foreign body. Reviewed, Interpreted and Dictated by Memo Callaway III, MD Transcribed by Delmi Reyes Authenticated and [facility]
== END 2023-06-17 23:59 ==
LOC: RAD 07:29
PROVIDERS: Visit Provider Nurse Practitioner Family
DX: R51.9 Headache, unspecified (principal); I11.9 Hypertensive heart disease without heart failure; R42 Dizziness and giddiness; H53.9 Unspecified visual disturbance
CPT/HCPCS: 70200; 70544; 70551

== ENCOUNTER 2023-06-26 15:00 | Outpatient (CLI) | payer BC, SELFPAY ==
[2023-06-08 15:18] LABS: Basophils # 0.1 K/mm3 (0-0.2); Basophils % 1.5 % (0.1-2.0); Eosinophils # 0.2 K/mm3 (0.0-0.4); Eosinophils % 2.9 % (0.1-12.0); Hematocrit 46.8 % (42.0-52.0); Hemoglobin 16.3 g/dL (14.1-18.0); Lymphocytes % 23.9 % (10-50); Mean Corpuscular HGB Conc 34.7 g/dL (31.8-35.4); Mean Corpuscular Hemoglobin 31.1 pg (27.0-31.2); Mean Corpuscular Volume 89.6 fl (80-94); Mean Platelet Volume 7.5 fl (7.4-10.4); Monocytes # 0.9 K/mm3 (0.1-1.0); Monocytes % 10.3 % (1.7-9.3); Neutrophils # 5.1 K/mm3 (1.8-7.8); Neutrophils % 61.4 % (37.0-80.0); Platelet Count 230 K/mm3 (142-424); Red Blood Count 5.22 M/mm3 (4.60-6.20); Red Cell Distribution Width 15.2 % (11.5-17.5); White Blood Count 8.3 K/mm3 (4.8-10.8)
[2023-06-08 15:47] LABS: Alanine Aminotransferase 48 U/L (12-78); Albumin Level 4.8 g/dl (3.5-5.0); Albumin/Globulin Ratio 1.8 (1.1-1.8); Alkaline Phosphatase 63 U/L (38-126); Anion Gap 10.9 mEq/L (5-15); Aspartate Amino Transferase 48 U/L (17-59); Bilirubin,Total 0.6 mg/dl (0.2-1.3); Blood Urea Nitrogen 13 mg/dl (9-20); Calcium 9.3 mg/dl (8.4-10.2); Carbon Dioxide 33 mmol/L (22.0-30.0); Chloride 102 mmol/L (98-107); Estimated Glomerular Filt Rate 78 ml/min (>60); GFR (African American) 94 ML/MIN (>60); Globulin 2.6 g/dL (1.3-3.2); Glucose 87 mg/dl (74-100); Potassium 3.9 mmoL/L (3.5-5.1); Sodium 142 mmol/L (136-145); Total Protein,Serum 7.4 g/dl (6.3-8.2)
[2023-06-08 16:08] LABS: Erythrocyte Sedimentation Rate 4 mm/hr (0-15)
[2023-06-08 16:17] LABS: Thyroid Stimulating Hormone 1.73 uIU/mL (0.465-4.68)
[2023-06-08 16:52] LABS: Vitamin B12 619 pg/mL (239-931)
[2023-06-08 16:54] LABS: Folate > 20.00 ng/mL
== END 2023-06-26 23:59 ==
LOC: LAB.DROPOF 06-30 10:10
PROVIDERS: PCP Nurse Practitioner Family; Visit Provider Nurse Practitioner Family
DX: R51.9 Headache, unspecified (principal); R42 Dizziness and giddiness; H53.9 Unspecified visual disturbance; R53.83 Other fatigue; I51.89 Other ill-defined heart diseases
CPT/HCPCS: 36415; 80053; 82607; 82746; 84443; 85025; 85651; 86140

== ENCOUNTER 2023-07-06 15:00 | Outpatient (CLI) | payer BC, SELFPAY ==
[2023-07-06 15:29] LABS: Basophils # 0.1 K/mm3 (0-0.2); Basophils % 1.3 % (0.1-2.0); Eosinophils # 0.1 K/mm3 (0.0-0.4); Eosinophils % 1.5 % (0.1-12.0); Hematocrit 46.1 % (42.0-52.0); Hemoglobin 15.5 g/dL (14.1-18.0); Lymphocytes # 1.6 K/mm3 (0.7-4.5); Lymphocytes % 24.3 % (10-50); Mean Corpuscular HGB Conc 33.7 g/dL (31.8-35.4); Mean Corpuscular Hemoglobin 30.4 pg (27.0-31.2); Mean Corpuscular Volume 90.3 fl (80-94); Mean Platelet Volume 7.9 fl (7.4-10.4); Monocytes # 0.5 K/mm3 (0.1-1.0); Monocytes % 7.4 % (1.7-9.3); Neutrophils # 4.1 K/mm3 (1.8-7.8); Neutrophils % 65.4 % (37.0-80.0); Platelet Count 214 K/mm3 (142-424); Red Cell Distribution Width 14.6 % (11.5-17.5); White Blood Count 6.3 K/mm3 (4.8-10.8)
[2023-07-06 15:39] LABS: Alanine Aminotransferase 51 U/L (12-78); Albumin Level 4.6 g/dl (3.5-5.0); Alkaline Phosphatase 56 U/L (38-126); Anion Gap 8.2 mEq/L (5-15); Aspartate Amino Transferase 53 U/L (17-59); Blood Urea Nitrogen 12 mg/dl (9-20); Calcium 9.9 mg/dl (8.4-10.2); Carbon Dioxide 32 mmol/L (22.0-30.0); Chloride 105 mmol/L (98-107); Cholesterol 241 mg/dl (140-200); Estimated Glomerular Filt Rate 87 ml/min (>60); GFR (African American) 105 ML/MIN (>60); Glucose 93 mg/dl (74-100); HDL Cholesterol 30 mg/dl (40-60); Magnesium 1.9 mg/dl (1.6-2.3); Potassium 4.2 mmoL/L (3.5-5.1); Sodium 141 mmol/L (136-145); Total Protein,Serum 7.2 g/dl (6.3-8.2); Triglycerides 218 mg/dl (30-150); VLDL Cholesterol 44 mg/dL (0-40)
[2023-07-06 15:50] LABS: Direct LDL Cholesterol 138.52 mg/dL (100-129)
[2023-07-06 15:55] LABS: Free T4 (Free Thyroxine) 0.77 ng/dl (0.78-2.19)
[2023-07-06 16:10] LABS: Thyroid Stimulating Hormone 1.99 uIU/mL (0.465-4.68)
== END 2023-07-06 23:59 | disposition home or self-care (01) ==
LOC: LAB 15:01
PROVIDERS: Visit Provider Nurse Practitioner
DX: I11.9 Hypertensive heart disease without heart failure (principal); E78.2 Mixed hyperlipidemia; R94.31 Abnormal electrocardiogram [ECG] [EKG]
CPT/HCPCS: 36415; 80048; 80061; 80076; 83735; 84439; 84443; 85025

== ENCOUNTER 2023-07-14 07:33 | Outpatient (CLI) | payer BC, SELFPAY ==
--- NOTE | 2023-07-14 07:33 | US_ITS ---
FINAL REPORT TECHNIQUE: Ultrasound images of the kidneys and bladder were obtained. CLINICAL HISTORY: I10 - Essential (primary) hypertension FINDINGS: The right kidney measures 11.1 cm in length. It is normal in echogenicity. There is no hydronephrosis. The left kidney measures 11 cm in length. It is normal in echogenicity. There is no hydronephrosis. The spleen is unremarkable. IMPRESSION: No hydronephrosis. Reviewed, Interpreted and Dictated by Mike Felton MD Transcribed by Delmi Reyes Authenticated and [facility]
--- NOTE | 2023-07-14 08:00 | CA_ITS ---
FINAL REPORT CLINICAL HISTORY: HTN FINDINGS: Aorta velocity: 98 cm/sec Right kidney: 11.4 cm. No evidence of hydronephrosis or mass. Right intrarenal RI: 0.60-0.65 Right renal artery velocity: 122 cm/sec. Right RAR (Renal artery-Aortic Ratio): 1.3 Left Kidney: 10.6 cm. No evidence of hydronephrosis or mass. Left intrarenal RI: 0.56-0.69 Left renal artery velocity: 156 cm/sec. Left RAR (Renal Artery-Aortic Ratio): 1.6 IMPRESSION: Less than 50% renal artery stenosis. CT angiogram or postcontrast MR angiogram would be more sensitive for evaluation of possible renal artery stenosis. Reviewed, Interpreted and Dictated by Mike Felton MD Transcribed by Delmi Reyes Authenticated and [facility]
[2023-07-14 16:10] LABS: Basophils # 0.1 K/mm3 (0-0.2); Eosinophils # 0.2 K/mm3 (0.0-0.4); Eosinophils % 2.9 % (0.1-12.0); Hematocrit 44.3 % (42.0-52.0); Hemoglobin 14.9 g/dL (14.1-18.0); Lymphocytes # 1.3 K/mm3 (0.7-4.5); Lymphocytes % 25.7 % (10-50); Mean Corpuscular HGB Conc 33.6 g/dL (31.8-35.4); Mean Corpuscular Hemoglobin 30.2 pg (27.0-31.2); Mean Platelet Volume 7.4 fl (7.4-10.4); Monocytes # 0.4 K/mm3 (0.1-1.0); Monocytes % 7.8 % (1.7-9.3); Neutrophils # 3.2 K/mm3 (1.8-7.8); Neutrophils % 62.5 % (37.0-80.0); Platelet Count 196 K/mm3 (142-424); Red Blood Count 4.92 M/mm3 (4.60-6.20); Red Cell Distribution Width 14.8 % (11.5-17.5); White Blood Count 5.1 K/mm3 (4.8-10.8)
[2023-07-14 16:34] LABS: Alanine Aminotransferase 41 U/L (12-78); Albumin Level 4.2 g/dl (3.5-5.0); Alkaline Phosphatase 55 U/L (38-126); Anion Gap 7.9 mEq/L (5-15); Aspartate Amino Transferase 40 U/L (17-59); Bilirubin,Indirect 0.6 mg/dL (0.0-0.9); Bilirubin,Total 0.6 mg/dl (0.2-1.3); Bilirubin,Unconjugated 0.6 mg/dL (0.0-1.1); Blood Urea Nitrogen 12 mg/dl (9-20); Calcium 9.1 mg/dl (8.4-10.2); Carbon Dioxide 31 mmol/L (22.0-30.0); Chloride 107 mmol/L (98-107); Chol/HDL Ratio 9.2 (1-3.5); Cholesterol 212 mg/dl (140-200); Estimated Glomerular Filt Rate 87 ml/min (>60); GFR (African American) 105 ML/MIN (>60); Glucose 95 mg/dl (74-100); HDL Cholesterol 23 mg/dl (40-60); Potassium 3.9 mmoL/L (3.5-5.1); Sodium 142 mmol/L (136-145); Total Protein,Serum 6.5 g/dl (6.3-8.2); Triglycerides 334 mg/dl (30-150); VLDL Cholesterol 67 mg/dL (0-40)
[2023-07-14 16:45] LABS: Direct LDL Cholesterol 115.41 mg/dL (100-129)
[2023-07-14 16:50] LABS: Free T4 (Free Thyroxine) 0.85 ng/dl (0.78-2.19)
[2023-07-14 17:05] LABS: Thyroid Stimulating Hormone 1.94 uIU/mL (0.465-4.68)
[2023-07-20 14:12] LABS: Metanephrine Plasma < 25.0 pg/mL (0.0-88.0); Normetanephrine Plasma 38.3 pg/mL (0.0-210.1)
== END 2023-07-14 23:59 | disposition home or self-care (01) ==
PROVIDERS: Internal Medicine; PCP Physician Assistant; Visit Provider Nurse Practitioner
DX: I10 Essential (primary) hypertension (principal)
CPT/HCPCS: 36415; 76770; 80048; 80061; 80076; 82088; 82384; 83735; 83835; 84244; 84439; 84443; 85025; 93976

== ENCOUNTER 2023-07-17 20:07 | Outpatient (CLI) | payer BC, SELFPAY ==
[2023-07-20 16:13] LABS: Metanephrine, U,24hr 84 ug/24 hr (58-276); Metanephrine, Ur 29 ug/L (Undefined); Normetanephr.,U,24h 171 ug/24 hr (156-729); Normetanephrine, Ur 59 ug/L (Undefined)
[2023-07-21 17:10] LABS: Dopamine, Ur, 24hr 305 ug/24 hr (0-510); Dopamine, Urine 105 ug/L (Undefined); Epinephrine, U, 24hr 9 ug/24 hr (0-20); Epinephrine, Urine 3 ug/L (Undefined); Norepinephrine, Ur <15 ug/L (Undefined); Norepinephrine,U,24h <44 ug/24 hr (0-135); VMA, Urine 1.2 mg/L (Undefined); VMA, Urine, 24hr 3.5 mg/24 hr (0.0-7.5)
== END 2023-07-17 23:59 | disposition home or self-care (01) ==
LOC: LAB.DROPOF 20:08
PROVIDERS: PCP Internal Medicine; Visit Provider Internal Medicine
DX: I10 Essential (primary) hypertension (principal)
CPT/HCPCS: 82384; 83835; 84585

== ENCOUNTER → 2023-08-15 12:26 | Outpatient (CLI) | payer BC, SELFPAY | LOC: SL 12:26 | PROVIDERS: PCP Physician Assistant; Visit Provider Nurse Practitioner Family | DX: G47.33 Obstructive sleep apnea (adult) (pediatric) (principal) | CPT/HCPCS: G0399 ==

== ENCOUNTER 2023-08-16 16:23 | Outpatient (CLI) | payer BC, SELFPAY | END 2023-08-16 23:59 | disposition home or self-care (01) | LOC: RT 16:24 | PROVIDERS: PCP Physician Assistant; Visit Provider Internal Medicine | DX: R00.2 Palpitations (principal) | CPT/HCPCS: 93270 ==

== ENCOUNTER 2023-10-03 15:31 | Emergency (ER) | payer BC, SELFPAY ==
[2023-10-03 15:40] VITALS: BP 125/77; PULSE 74; RESP 20; TEMP 37.1; O2SAT 98; BMI 34.9
--- NOTE | 2023-10-03 16:20 | ED_ITS ---
Discharge Plan Disposition Patient Disposition: Home, Self-Care Condition: Good Prescriptions Prescriptions: New amoxicillin-pot clavulanate 875-125 mg Tablet 1 tab PO Q12H 7 Days Qty: 14 0RF hydrocortisone 1 % cream 1 applic topical TID PRN (Reason: skin irritation) 3 Days Qty: 28.4 1RF Rx Instructions: apply to areas on chest and arms as directed for 3 days No Action metoprolol succinate 25 mg tablet extended release 24 hr 25 mg PO BID Patient Comments: TAKE 1 TABLET BY MOUTH ONCE DAILY losartan 100 mg tablet 100 mg PO DAILY Rx Instructions: Take 1 tablet by mouth once daily Referrals Follow up/Referrals: Martha Santos PA [Primary Care Provider] - See instructions Activity Restrictions/Add. Instructions Additional Instructions/Restrictions: Over the counter Motrin and benadryl may help with pain and itching from sunburn First aid for sunburn includes the following: * Take a pain reliever.?Use a nonprescription pain reliever as soon as possible after getting too much sun. Examples are ibuprofen (Advil, Motrin IB, others) and acetaminophen (Tylenol, others). * Cool the skin.?Apply to the affected skin a clean towel dampened with cool tap water. Or take a cool bath. Add about 2 ounces (60 grams) of baking soda to the tub. Cool the skin for about 10 minutes several times a day. * Apply a moisturizer, lotion or gel.?An aloe vera lotion or gel or calamine lotion can be soothing. Try cooling the product in the refrigerator before applying. Avoid products with alcohol. * Drink extra water for a day.?This helps prevent dehydration. * Leave blisters alone.?An intact blister can help the skin heal. If a blister does break, trim off the skin with a clean, small scissors. Gently clean the area with mild soap and water. * Protect yourself from the sun.?While your skin heals from the sunburn, stay out of the sun or use other sun-protection measures. Make sure to wear large brimmed hat and in the future use sunscreen * Apply a soothing medicated cream.?For mild to moderate sunburn, apply nonprescription 1% hydrocortisone cream to the affected area three times a day for three days. Try cooling the product in the refrigerator before applying. Follow up with your Family Doctor if no improvement or any worsening of symptoms Over the counter Solarcaine spray may help Clinical Impressions Clinical Impression: Sunburn Dog bite Qualifiers: Encounter type: initial encounter Qualified Code(s): W54.0XXA - Bitten by dog, initial encounter Instructions Patient Instructions: How to Avoid Sunburn, DI for Animal Bites, DI for Sunburn, DI for Dog Bite Discharge ED Provider: Shanika Lawrence [facility] HPI General Stated complaint: AO 10/02/23 1800 dog bite left leg Mode of Arrival: Ambulatory Source of Information: Patient Limitations: No Limitations Time Seen by Provider: 10/03/23 16:20 Description of Symptoms (Recalled from Triage Doc. by RN): PATIENT C/O DOG BITE TO LEFT LOWER LEG THAT HAPPENED TUESDAY EVENING. PATIENT ALSO C/O SUNBURN TO BACK HEENT Symptoms (Recalled from RN notes): No Resp Symptoms (Recalled from RN notes): No Skin Symptoms (Recalled from RN notes): Yes MS Symptoms (Recalled from RN notes): No Functional Status (Recalled from RN notes): WNL History of Present Illness Provider Complaint: Patient states that he was at a pool democrat at his aunts house on Tuesday and he was bitten by his aunts dog on his left calf area States that area is sore and he was worried about infection States that also he was out in the sun and got a bad sunburn on his shoulders, chest and back and has some blisters so he came in to see if there was something that he could get for that also Related Data Home Medications Medication Instructions Recorded Confirmed metoprolol succinate 25 mg 25 mg PO BID 07/20/23 10/03/23 tablet,extended release 24 hr losartan 100 mg tablet 100 mg PO DAILY 10/03/23 10/03/23 Previous Rx's Medication Instructions Recorded amoxicillin 875 mg-potassium 1 tab PO Q12H 7 days #14 tabs 10/03/23 clavulanate 125 mg tablet hydrocortisone 1 % topical cream 1 applic topical TID PRN skin 10/03/23 irritation 3 days #28.4 grams Allergies Allergy/AdvReac Type Severity Reaction Status Date / Time No Known Allergies Allergy Verified 09/21/23 16:13 Worker's Comp Is this a Worker's Comp case?: No [facility] Disclaimer: The information contained in this section may have been updated after the patient was seen, as this information can be updated by other users. Medical History Diastolic dysfunction Elevated left ventricular end-diastolic pressure (LVEDP) TMJ (temporomandibular joint syndrome) Sinusitis Chest pain Dizziness Palpitations Hypertension HLD (hyperlipidemia) Hypertension Family History Other Coronary artery disease Diabetes Heart attack Hyperlipidemia Hypertension Social History Smoking Status: Never smoker alcohol intake: never substance use type: denies use current occupational status: employed Travel in the last 8 weeks: None household members: children housing: house marital status: single ROS Obtained: Yes All systems reviewed & no additional complaints except as documented and Yes Systems reviewed as appropriate & no additional complaints except as documented Constitutional Constitutional: Reports system reviewed and no additional complaints, except as documented, Reports as per HPI, Denies body ache, Denies chills, Denies fever(s) and Denies headache(s) ENT Ears, Nose, Mouth, and Throat: Reports system reviewed and no additional complaints, except as documented, Reports as per HPI and Denies headache(s) Cardiovascular Cardiovascular: Reports system reviewed and no additional complaints, except as documented and Reports as per HPI Respiratory Respiratory: Reports system reviewed and no additional complaints, except as documented and Reports as per HPI Gastrointestinal Gastrointestingal: Reports system reviewed and no additional complaints, except as documented and as per HPI Musculoskeletal Musculoskeletal: Reports system reviewed and no additional complaints, except as documented and Reports as per HPI Integumentary/Breasts Skin/Breast: Reports system reviewed and no additional complaints, except as documented, Reports as per HPI and Reports other Comments: Sunburn on shoulders, back and chest area with small blisters, dog bite on left calf Neurologic Neurologic: Denies headache(s) Physical Exam General General appearance: alert and in no apparent distress ENT ENT exam: Present mucous membranes moist Respiratory Respiratory exam: Present normal lung sounds bilaterally; Absent respiratory distress or wheezes Cardiovascular Cardiovascular exam: Present regular rate, normal rhythm and normal heart sounds Expanded Lower Extremity Exam Left: Leg image: 2 1. small bite area noted no redness, tenderness noted no active bleeding Neurological Exam Neurological exam: Present alert, oriented X3 and normal gait Skin Skin exam: Present other (sunburn noted to bilateral arms, chest and back with fine small blister like areas noted tender to the touch blanchable) Medical Decision Making Vineet Inquiry Pt receiving controlled substance: No Vineet was queried for this patient: No Vital Signs: 10/03/23 15:40 Temperature 98.7 F Temperature Source Oral Pulse Rate [Left Brachial] 74 Respiratory Rate 20 Blood Pressure [Left Arm] 125/77 Blood Pressure Mean [Left Arm] 93 Blood Pressure Source [Left Arm] Automatic Cuff Blood Pressure Position [Left Arm] Sitting 02 Sat by Pulse Oximetry 98 Oxygen Delivery Method Room Air
[2023-10-03] MEDS: TET/DIPHTH/PERT-ADULT 0.5ML SYRINGE 0.5 ML IM (16:30)
[2023-10-03 16:47] VITALS: BP 125/77; PULSE 74; RESP 20; TEMP 37.1; O2SAT 98
== END 2023-10-03 16:51 | disposition home or self-care (01) ==
PROVIDERS: Emergency Provider Nurse Practitioner; PCP Physician Assistant
DX: S81.852A Open bite, left lower leg, initial encounter (principal); L55.9 Sunburn, unspecified; W54.0XXA Bitten by dog, initial encounter; M79.662 Pain in left lower leg; Z23 Encounter for immunization
CPT/HCPCS: 90471; 90715; 99212; 99214; G0463